=== PATIENT | male | born 1950 | race Caucasian/White ===

== ENCOUNTER → 2017-06-21 | Outpatient (CLI) | payer BC ==
[2017-06-21 13:19] LABS: HCT 46.7 % (39.0-53.0); HGB 15.1 gm/dL (13.0-17.5); MCH 29.6 pg (25.0-35.0); MCHC 32.3 g/dL (31.0-37.0); MCV 91.7 fL (80.0-100.0); Mean Platelet Volume 6.9; Platelet Count 248 k/uL (150-450); RBC 5.09 m/uL (4.30-5.90); RDW 12.5 % (11.5-15.5); WBC 6.2 k/uL (3.8-10.6)
[2017-06-21 13:27] LABS: Appearance,Urine Clear (Clear); Bilirubin,Urine Negative (Negative); Blood,Urine Negative (Negative); Color,Urine Yellow; Glucose,Urine (UA) 2+ (Negative); Ketones,Urine Negative (Negative); Leukocyte Esterase,Urine Negative (Negative); Nitrite,Urine Negative (Negative); Protein,Urine Trace (Negative); Specific Gravity,Urine 1.024 (1.001-1.035); Urobilinogen,Urine <2.0 mg/dL (<2.0)
[2017-06-21 13:40] LABS: Albumin 3.9 g/dL (3.5-5.0); Calcium 9.5 mg/dL (8.4-10.2); Phosphorus 3.1 mg/dL (2.5-4.5); Potassium 4.1 mmol/L (3.5-5.1)
[2017-06-21 14:01] LABS: Creatinine,Urine Random 321.9 mg/dL
[2017-06-21 19:56] LABS: Parathyroid Hormone Intact 59.4 pg/mL (14.0-72.0)
[2017-06-21 19:57] LABS: Vitamin D 25 Hydroxy 23.8 ng/mL (30.0-100.0)
== END | disposition home or self-care (01) ==
LOC: LABWHC1 12:29
PROVIDERS: ATTEND Internal Medicine Nephrology
DX: N18.3 Chronic kidney disease, stage 3 (moderate) (principal)
CPT/HCPCS: 36415; 80048; 80069; 81003; 82306; 82570; 83970; 84156; 85027

== ENCOUNTER 2017-12-02 01:58 | Emergency (ER) | payer MEDICARE, BC ==
[2017-12-02 02:47] LABS: Basophils % (A) 0 %; Eosinophils # (A) 0.1 k/uL (0-0.7); Eosinophils % (A) 1 %; HCT 53.5 % (39.0-53.0); HGB 17.6 gm/dL (13.0-17.5); Lymphocytes # (A) 1.4 k/uL (1.0-4.8); Lymphocytes % (A) 8 %; MCHC 32.9 g/dL (31.0-37.0); MCV 85.1 fL (80.0-100.0); Mean Platelet Volume 6.8; Monocytes # (A) 0.7 k/uL (0-1.0); Monocytes % (A) 4 %; Neutrophils # (A) 15.2 k/uL (1.3-7.7); Neutrophils % (A) 87 %; Platelet Count 412 k/uL (150-450); RBC 6.29 m/uL (4.30-5.90); RDW 13.4 % (11.5-15.5); WBC 17.6 k/uL (3.8-10.6)
[2017-12-02 02:57] LABS: Albumin 4.4 g/dL (3.5-5.0); Calcium 10.1 mg/dL (8.4-10.2); Magnesium 1.3 mg/dL (1.6-2.3); Potassium 4.5 mmol/L (3.5-5.1); Total Bilirubin 0.6 mg/dL (0.2-1.3); Total Protein 7.1 g/dL (6.3-8.2)
--- NOTE | 2017-12-02 03:05 | XR ---
EXAMINATION TYPE: XR chest 2V DATE OF EXAM: 12/02/2017 COMPARISON: NONE HISTORY: Chest pain TECHNIQUE: Frontal and lateral views of the chest are obtained. FINDINGS: There is no heart failure nor confluent pneumonic infiltrate. There are sternal wires. Cos tophrenic angles are clear. There are chest leads. Bony thorax is intact. IMPRESSION: No active cardiopulmonary disease.
[2017-12-02 03:06] LABS: INR 1.1 (<1.2); Partial Thromboplastin Time 24.2 sec (22.0-30.0); Prothrombin Time 10.5 sec (9.0-12.0)
[2017-12-02 03:08] LABS: Creatine Kinase 144 U/L (55-170)
[2017-12-02 03:21] LABS: Troponin I <0.012 ng/mL (0.000-0.034)
[2017-12-02 03:26] LABS: Creatine Kinase MB 3.1 ng/mL (0.0-2.4)
[2017-12-02] MEDS ORDERED: LORazepam 2 MG/ML INJ IV STA (03:27)
[2017-12-02] MEDS ORDERED: SODIUM CHLORIDE 0.9% 1,000 ML IV ONE (03:28)
[2017-12-02] MEDS ORDERED: MAGNESIUM SULFATE-D5W PMX 1 GM in DEXTROSE/WATER 1 100ML.BAG IVPB ONE (03:28)
--- NOTE | 2017-12-02 03:40 | ED ---
General Adult HPI - General Chief complaint: Shortness of Breath Stated complaint: Post op CESARIO Time Seen by Provider: 12/02/17 02:17 Source: patient Mode of arrival: ambulatory Limitations: no limitations - History of Present Illness Initial comments: Leo is a 67-year-old male who presents the emergency department today for evaluation of shortness of breath and palpitations. Patient reports that earlier today he underwent surgery for septal deviation. She was told that postoperatively he did have some hypertension but otherwise the surgery well. He was advised that he cannot lay flat after surgery. Patient reports that this evening he began feeling very anxious. He states that he was able to calm himself but later this evening he then began to feel even more anxious and as though he could not catch his breath. He could feel his heart racing. He asked his son to bring him to the ER for evaluation. Patient has no known cardiac disease, no history of arrhythmia, no history of PE or DVT in the past. Patient states that he was prescribed antibiotics post operatively, he took the first dose this evening. He states that when he began to feel short of breath he read side effects and read that shortness of breath or trouble breathing was a possible side effect. Patient states he feels as though he is having a panic attack however he didn't want take Ativan as he didn't want to mask any symptoms. - Related Data Home Medications Medication Instructions Recorded Confirmed Aspirin 81 mg PO DAILY 12/02/17 12/02/17 Cephalexin [Keflex] 500 mg PO BID 12/02/17 12/02/17 Ergocalciferol (Vitamin D2) 50,000 unit PO DAILY 12/02/17 12/02/17 [Vitamin D2] HYDROcodone/APAP 7.5-325MG [[place] 1 tab PO Q8HR PRN 12/02/17 12/02/17 7.5-325] Losartan/Hydrochlorothiazide 100 mg PO DAILY 12/02/17 12/02/17 [Losartan-Hctz 100-25 mg Tab] Potassium Citrate [Urocit-K] 5 meq PO DAILY 12/02/17 12/02/17 Zolpidem [Ambien] 5 mg PO HS PRN 12/02/17 12/02/17 buPROPion [Wellbutrin] 100 mg PO BID 12/02/17 12/02/17 clonazePAM [KlonoPIN] 0.5 mg PO DAILY PRN 12/02/17 12/02/17 metFORMIN HCL [Glucophage] 500 mg PO BID 12/02/17 12/02/17 Allergies Allergy/AdvReac Type Severity Reaction Status Date / Time No Known Allergies Allergy Verified 12/02/17 02:10 Review of Systems ROS Statement: Those systems with pertinent positive or pertinent negative responses have been documented in the HPI. ROS Other: All systems not noted in ROS Statement are negative. Past Medical History Past Medical History: Diabetes Mellitus, Hypertension Additional Past Medical History / Comment(s): Stage three Kidney disease History of Any Multi-Drug Resistant Organisms: None Reported Past Surgical History: Cholecystectomy, Prostate Surgery, Tonsillectomy Additional Past Surgical History / Comment(s): Open heart 97, Past Psychological History: No Psychological Hx Reported Smoking Status: Never smoker Past Alcohol Use History: Occasional Past Drug Use History: None Reported General Exam Limitations: no limitations General appearance: alert, anxious Head exam: Present: atraumatic, normocephalic Eye exam: Present: normal appearance ENT exam: Present: other (bandage in place on nose) Neck exam: Present: normal inspection Respiratory exam: Present: normal lung sounds bilaterally. Absent: respiratory distress, wheezes Cardiovascular Exam: Present: normal rhythm, tachycardia GI/Abdominal exam: Present: soft. Absent: distended Rectal exam: Present: deferred Extremities exam: Present: normal inspection, full ROM Back exam: Present: normal inspection Neurological exam: Present: alert, oriented X3, normal gait Psychiatric exam: Present: anxious Skin exam: Present: warm, dry Course Vital Signs 12/02/17 12/02/17 12/02/17 02:05 02:33 03:14 Temperature 98.0 F Pulse Rate 120 H 103 H Respiratory 24 20 18 Rate Blood Pressure 173/99 156/98 O2 Sat by Pulse 97 97 Oximetry 12/02/17 05:48 Temperature 97 F L Pulse Rate 95 Respiratory 20 Rate Blood Pressure 149/84 O2 Sat by Pulse 97 Oximetry EKG Findings - EKG Comments: EKG Findings:: EKG at 02:33am - Rate 105, rhythm sinus, normal intervals, AL 1: 30, QRS 92, QTc 438, there are no acute ST elevations or depressions. There is no evidence of acute ischemia or infarction. There is tachycardia. Medical Decision Making - Medical Decision Making The patient was seen and evaluated, history was obtained from patient Patient very anxious, concerned he may be having reaction to antibiotic No rash, GI symptoms, wheezing or hemodynamic instability Labs and imaging ordered EKG sinus tachycardia CXR no acute process Labs reviewed Patient's symptoms improving after return from xray, reports he is feeling better while taking to his son in the room IV ativan ordered for anxiety as he is claustrophobic and needs CT to rule out PE Computed tomography scan reveals no acute pulmonary embolism or pulmonology pathology. That until he Patient was noted have a 4 cm ascending aortic aneurysm. Results were discussed with the patient. Who reports complete resolution of his symptoms. Patient concerned that he maybe had a panic attack secondary to stress of the day. Patient states that he usually would take his benzodiazepines at home for this but didn't want to. At this time patient feels safe to go home. The patient was made aware of his ascending aortic aneurysm and the need to follow up. - Lab Data Result diagrams: 12/02/17 02:35 12/02/17 02:35 Lab Results 12/02/17 12/02/17 12/02/17 Range/Units 02:35 02:35 02:35 WBC 17.6 H (3.8-10.6) k/uL RBC 6.29 H (4.30-5.90) m/uL Hgb 17.6 H (13.0-17.5) gm/dL Hct 53.5 H (39.0-53.0) % MCV 85.1 (80.0-100.0) fL MCH 28.0 (25.0-35.0) pg MCHC 32.9 (31.0-37.0) g/dL RDW 13.4 (11.5-15.5) % Plt Count 412 (150-450) k/uL Neutrophils % 87 % Lymphocytes % 8 % Monocytes % 4 % Eosinophils % 1 % Basophils % 0 % Neutrophils # 15.2 H (1.3-7.7) k/uL Lymphocytes # 1.4 (1.0-4.8) k/uL Monocytes # 0.7 (0-1.0) k/uL Eosinophils # 0.1 (0-0.7) k/uL Basophils # 0.0 (0-0.2) k/uL PT (9.0-12.0) sec INR (<1.2) APTT (22.0-30.0) sec Sodium 136 L (137-145) mmol/L Potassium 4.5 (3.5-5.1) mmol/L Chloride 102 (98-107) mmol/L Carbon Dioxide 17 L (22-30) mmol/L Anion Gap 17 mmol/L BUN 25 H (9-20) mg/dL Creatinine 1.30 H (0.66-1.25) mg/dL Est GFR (CKD-EPI)AfAm 66 (>60 ml/min/1.73 sqM) Est GFR (CKD-EPI)NonAf 57 (>60 ml/min/1.73 sqM) Glucose 196 H (74-99) mg/dL Calcium 10.1 (8.4-10.2) mg/dL Magnesium 1.3 L (1.6-2.3) mg/dL Total Bilirubin 0.6 (0.2-1.3) mg/dL AST 25 (17-59) U/L ALT 41 (21-72) U/L Alkaline Phosphatase 57 (38-126) U/L Total Creatine Kinase 144 (55-170) U/L CK-MB (CK-2) 3.1 H* (0.0-2.4) ng/mL CK-MB (CK-2) Rel Index 2.2 Troponin I <0.012 (0.000-0.034) ng/mL Total Protein 7.1 (6.3-8.2) g/dL Albumin 4.4 (3.5-5.0) g/dL 12/02/17 Range/Units 02:35 WBC (3.8-10.6) k/uL RBC (4.30-5.90) m/uL Hgb (13.0-17.5) gm/dL Hct (39.0-53.0) % MCV (80.0-100.0) fL MCH (25.0-35.0) pg MCHC (31.0-37.0) g/dL RDW (11.5-15.5) % Plt Count (150-450) k/uL Neutrophils % % Lymphocytes % % Monocytes % % Eosinophils % % Basophils % % Neutrophils # (1.3-7.7) k/uL Lymphocytes # (1.0-4.8) k/uL Monocytes # (0-1.0) k/uL Eosinophils # (0-0.7) k/uL Basophils # (0-0.2) k/uL PT 10.5 (9.0-12.0) sec INR 1.1 (<1.2) APTT 24.2 (22.0-30.0) sec Sodium (137-145) mmol/L Potassium (3.5-5.1) mmol/L Chloride (98-107) mmol/L Carbon Dioxide (22-30) mmol/L Anion Gap mmol/L BUN (9-20) mg/dL Creatinine (0.66-1.25) mg/dL Est GFR (CKD-EPI)AfAm (>60 ml/min/1.73 sqM) Est GFR (CKD-EPI)NonAf (>60 ml/min/1.73 sqM) Glucose (74-99) mg/dL Calcium (8.4-10.2) mg/dL Magnesium (1.6-2.3) mg/dL Total Bilirubin (0.2-1.3) mg/dL AST (17-59) U/L ALT (21-72) U/L Alkaline Phosphatase (38-126) U/L Total Creatine Kinase (55-170) U/L CK-MB (CK-2) (0.0-2.4) ng/mL CK-MB (CK-2) Rel Index Troponin I (0.000-0.034) ng/mL Total Protein (6.3-8.2) g/dL Albumin (3.5-5.0) g/dL Disposition Clinical Impression: Shortness of breath, Aortic aneurysm Disposition: HOME SELF-CARE Condition: Good Instructions: Thoracic Aortic Aneurysm (ED) Is patient prescribed a controlled substance at d/c from ED?: No Referrals: Dwayne Chaparro MD [Primary Care Provider] - 1-2 days Time of Disposition: 05:12
--- NOTE | 2017-12-02 04:46 | CT ---
EXAMINATION TYPE: CT chest angio for PE DATE OF EXAM: 12/02/2017 COMPARISON: None HISTORY: SOB, Post Op Deviated Septum surgery yesterday CT DLP: 459.30 mGycm Automated exposure control for dose reduction was used. CONTRAST: CT Chest for pulmonary embolism performed with with IV Contrast, patient injected with 65 mL of Isovu e 370. FINDINGS: There are 3-D post processed images. The lungs are clear of consolidation. There is no pleural effusion. Heart size is normal. There is no pericardial effusion. There is normal contrast opacification of the pulmonary arteries. I see no filling defect. Thoracic a arias shows mild atheromatous change. There is mild aneurysm of ascending aorta that measures 4 cm. Th ere is no evidence of dissection. There is no mediastinal adenopathy. There are no hilar masses. Ther e is spurring in the thoracic spine. IMPRESSION: No evidence of pulmonary embolism. Minimal aneurysm of the ascending aorta.
[2017-12-02 05:49] VITALS: BP 149/84; PULSE 95; RESP 20; TEMP 97
== END 2017-12-02 05:49 | disposition home or self-care (01) ==
LOC: EC 01:58
DX: I71.2 Thoracic aortic aneurysm, without rupture (principal); F41.9 Anxiety disorder, unspecified; E11.9 Type 2 diabetes mellitus without complications; I10 Essential (primary) hypertension; Z79.82 Long term (current) use of aspirin; Z79.84 Long term (current) use of oral hypoglycemic drugs; Z79.899 Other long term (current) drug therapy
CPT/HCPCS: 96365 ×2; 96366 ×2; 96375 ×2; 99285 ×3; 36415; 93005; 80053; 82550; 82553; 83735; 84484; 85025; 85610; 85730; 71046; 71275; J2060; J3475; Q9967

== ENCOUNTER 2017-12-02 14:16 | Emergency (ER) | payer MEDICARE, BC ==
[2017-12-02 14:25] VITALS: TEMP 97.4
[2017-12-02] MEDS ORDERED: LORazepam 1 MG TAB PO STA (14:47)
--- NOTE | 2017-12-02 15:07 | ED ---
General Adult HPI - General Chief complaint: Recheck/Abnormal Lab/Rx Stated complaint: SOB Time Seen by Provider: 12/02/17 14:36 Source: patient, RN notes reviewed, old records reviewed Mode of arrival: ambulatory Limitations: no limitations - History of Present Illness Initial comments: This is a 67-year-old male. This patient does say for evaluation regarding significant anxiety anxiety the reaction. Patient states he feels very stressed secondary to surgery, he does have nasal packing, patient states it makes her very nervous that he can't breathe and he doesn't light breathing out of his mouth. Patient so nurse that he cannot sleep. Patient does have Klonopin at home and he does usually take for sleep today but is afraid to take that secondary to anesthetic for surgery. Patient was seen in ER last night for same - Related Data Home Medications Medication Instructions Recorded Confirmed Aspirin 81 mg PO DAILY 12/02/17 12/02/17 Cephalexin [Keflex] 500 mg PO BID 12/02/17 12/02/17 Ergocalciferol (Vitamin D2) 50,000 unit PO DAILY 12/02/17 12/02/17 [Vitamin D2] HYDROcodone/APAP 7.5-325MG [[place] 1 tab PO Q8HR PRN 12/02/17 12/02/17 7.5-325] Losartan/Hydrochlorothiazide 100 mg PO DAILY 12/02/17 12/02/17 [Losartan-Hctz 100-25 mg Tab] Potassium Citrate [Urocit-K] 5 meq PO DAILY 12/02/17 12/02/17 Zolpidem [Ambien] 5 mg PO HS PRN 12/02/17 12/02/17 buPROPion [Wellbutrin] 100 mg PO BID 12/02/17 12/02/17 clonazePAM [KlonoPIN] 0.5 mg PO DAILY PRN 12/02/17 12/02/17 metFORMIN HCL [Glucophage] 500 mg PO BID 12/02/17 12/02/17 Allergies Allergy/AdvReac Type Severity Reaction Status Date / Time chocolate flavor AdvReac congested Verified 12/02/17 14:26 corn AdvReac congested Verified 12/02/17 14:26 tomato AdvReac congested Verified 12/02/17 14:26 Review of Systems ROS Statement: Those systems with pertinent positive or pertinent negative responses have been documented in the HPI. ROS Other: All systems not noted in ROS Statement are negative. Past Medical History Past Medical History: Diabetes Mellitus, Hypertension Additional Past Medical History / Comment(s): Stage three Kidney disease History of Any Multi-Drug Resistant Organisms: None Reported Past Surgical History: Cholecystectomy, Coronary Bypass/CABG, Prostate Surgery, Tonsillectomy Additional Past Surgical History / Comment(s): deviated septum repair Past Psychological History: No Psychological Hx Reported Smoking Status: Never smoker Past Alcohol Use History: Occasional Past Drug Use History: None Reported General Exam Limitations: no limitations General appearance: alert, in no apparent distress Head exam: Present: atraumatic, normocephalic, normal inspection Eye exam: Present: normal appearance, PERRL, EOMI. Absent: scleral icterus, conjunctival injection, periorbital swelling ENT exam: Present: normal exam, mucous membranes moist Neck exam: Present: normal inspection. Absent: tenderness, meningismus, lymphadenopathy Respiratory exam: Present: normal lung sounds bilaterally. Absent: respiratory distress, wheezes, rales, rhonchi, stridor Cardiovascular Exam: Present: regular rate, normal rhythm, normal heart sounds. Absent: systolic murmur, diastolic murmur, rubs, gallop, clicks GI/Abdominal exam: Present: soft, normal bowel sounds. Absent: distended, tenderness, guarding, rebound, rigid Extremities exam: Present: normal inspection, full ROM, normal capillary refill. Absent: tenderness, pedal edema, joint swelling, calf tenderness Back exam: Present: normal inspection Neurological exam: Present: alert, oriented X3, CN II-XII intact Psychiatric exam: Present: normal affect, normal mood Skin exam: Present: warm, dry, intact, normal color. Absent: rash Course Vital Signs 12/02/17 14:21 Temperature 97.4 F L Pulse Rate 90 Respiratory 18 Rate Blood Pressure 148/102 O2 Sat by Pulse 98 Oximetry - Reevaluation(s) Reevaluation #1: 12/02/17 15:06 ER visit from prior the night is reviewed Reevaluation #2: 12/02/17 15:06 Spoke with family at length regarding anxiety in medications. Medical Decision Making - Medical Decision Making 67 male the ER for evaluation. Patient presents today for evaluation regards to anxiety attack secondary to surgery. Patient is CTA chest negative earlier in the day. Patient can be discharged home Disposition Clinical Impression: Shortness of breath, Anxiety Disposition: HOME SELF-CARE Condition: Good Instructions: Anxiety (ED) Is patient prescribed a controlled substance at d/c from ED?: No Referrals: Dwayne Chaparro MD [Primary Care Provider] - 1-2 days
[2017-12-02 16:02] VITALS: BP 126/89; PULSE 75; RESP 16
== END 2017-12-02 16:02 | disposition home or self-care (01) ==
LOC: EC 14:16
DX: R06.02 Shortness of breath (principal); F41.9 Anxiety disorder, unspecified; R45.0 Nervousness; E11.9 Type 2 diabetes mellitus without complications; I10 Essential (primary) hypertension; Z91.018 Allergy to other foods; Z79.82 Long term (current) use of aspirin; Z79.84 Long term (current) use of oral hypoglycemic drugs; Z79.899 Other long term (current) drug therapy; Z98.890 Other specified postprocedural states; Z95.1 Presence of aortocoronary bypass graft
CPT/HCPCS: 99285

== ENCOUNTER → 2018-12-12 | Outpatient (CLI) | payer BC, MEDICARE ==
[2018-12-12 15:16] LABS: Appearance,Urine Clear (Clear); Basophils # (A) 0.1 k/uL (0-0.2); Basophils % (A) 1 %; Bilirubin,Urine Negative (Negative); Blood,Urine Negative (Negative); Color,Urine Yellow; Eosinophils # (A) 0.2 k/uL (0-0.7); Eosinophils % (A) 2 %; Glucose,Urine (UA) 3+ (Negative); HCT 48.6 % (39.0-53.0); HGB 16.4 gm/dL (13.0-17.5); Ketones,Urine Negative (Negative); Leukocyte Esterase,Urine Negative (Negative); Lymphocytes # (A) 1.6 k/uL (1.0-4.8); Lymphocytes % (A) 20 %; MCH 30.4 pg (25.0-35.0); MCHC 33.7 g/dL (31.0-37.0); MCV 90.1 fL (80.0-100.0); Mean Platelet Volume 6.6; Monocytes # (A) 0.6 k/uL (0-1.0); Monocytes % (A) 8 %; Neutrophils # (A) 5.5 k/uL (1.3-7.7); Neutrophils % (A) 68 %; Nitrite,Urine Negative (Negative); Platelet Count 271 k/uL (150-450); Protein,Urine Trace (Negative); RDW 13.3 % (11.5-15.5); Specific Gravity,Urine 1.021 (1.001-1.035); Urobilinogen,Urine <2.0 mg/dL (<2.0); WBC 8.1 k/uL (3.8-10.6)
[2018-12-12 19:04] LABS: African American GFR (CKD) 47.6 (60.0-200.0); Albumin 4.1 g/dL (3.80-4.90); Albumin/Globulin Ratio 2.16 (1.60-3.17); Anion Gap 9.6 mmol/L (4.00-12.00); BUN/Creat Ratio 15.88 Ratio (12.00-20.00); Calcium 9.1 mg/dL (8.7-10.3); Carbon Dioxide 25.4 mmol/L (21.6-31.8); Globulin 1.9 g/dL (1.6-3.3); Non-African American GFR(CKD) 41.1 (60.0-200.0); Phosphorus 3.5 mg/dL (2.4-5.1); Potassium 4.4 mmol/L (3.5-5.5); Total Bilirubin 0.3 mg/dL (0.3-1.2); Uric Acid 7.3 mg/dL (3.7-8.7)
[2018-12-13 00:38] LABS: Total Protein,Urine Random 18.8 mg/dL (0.0-13.5)
[2018-12-13 00:41] LABS: Creatinine,Urine Random 115.7 mg/dL
== END | disposition home or self-care (01) ==
LOC: LABWHC1 12-11 12:20
PROVIDERS: ATTEND Internal Medicine Nephrology
DX: N18.3 Chronic kidney disease, stage 3 (moderate) (principal)
CPT/HCPCS: 36415; 80053; 81003; 82570; 83970; 84100; 84156; 84550; 85025

== ENCOUNTER → 2019-06-15 | Outpatient (CLI) | payer MEDICARE ==
[2019-06-15 13:44] LABS: Basophils # (A) 0.1 k/uL (0-0.2); Basophils % (A) 1 %; Eosinophils # (A) 0.2 k/uL (0-0.7); Eosinophils % (A) 3 %; HCT 51.8 % (39.0-53.0); HGB 16.8 gm/dL (13.0-17.5); Lymphocytes # (A) 1.6 k/uL (1.0-4.8); Lymphocytes % (A) 24 %; MCHC 32.5 g/dL (31.0-37.0); MCV 89.3 fL (80.0-100.0); Mean Platelet Volume 7.2; Monocytes # (A) 0.3 k/uL (0-1.0); Monocytes % (A) 4 %; Neutrophils # (A) 4.6 k/uL (1.3-7.7); Neutrophils % (A) 66 %; Platelet Count 287 k/uL (150-450); RDW 12.4 % (11.5-15.5)
[2019-06-15 14:34] LABS: Appearance,Urine Clear (Clear); Bilirubin,Urine Negative (Negative); Blood,Urine Negative (Negative); Color,Urine Yellow; Glucose,Urine (UA) Trace (Negative); Ketones,Urine Negative (Negative); Leukocyte Esterase,Urine Negative (Negative); Nitrite,Urine Negative (Negative); PH, Urine 5.5 (5.0-8.0); Protein,Urine Trace (Negative); Specific Gravity,Urine 1.022 (1.001-1.035); Urobilinogen,Urine <2.0 mg/dL (<2.0)
[2019-06-15 18:30] LABS: African American GFR (CKD) 41.7 (60.0-200.0); Albumin 4.5 g/dL (3.80-4.90); Albumin/Globulin Ratio 2.37 (1.60-3.17); Anion Gap 8.9 mmol/L (4.00-12.00); BUN/Creat Ratio 11.05 Ratio (12.00-20.00); Calcium 9.6 mg/dL (8.7-10.3); Carbon Dioxide 27.1 mmol/L (21.6-31.8); Globulin 1.9 g/dL (1.6-3.3); Non-African American GFR(CKD) 35.9 (60.0-200.0); Phosphorus 3.5 mg/dL (2.4-5.1); Potassium 4.5 mmol/L (3.5-5.5); Total Bilirubin 0.6 mg/dL (0.3-1.2); Total Protein 6.4 g/dL (6.2-8.2)
[2019-06-16 01:16] LABS: Total Protein,Urine Random 19.6 mg/dL (0.0-13.5)
[2019-06-16 01:17] LABS: Creatinine,Urine Random 213.3 mg/dL
== END | disposition home or self-care (01) ==
LOC: LABWHC1 13:08
PROVIDERS: ATTEND Internal Medicine Nephrology
DX: N18.3 Chronic kidney disease, stage 3 (moderate) (principal)
CPT/HCPCS: 36415; 80053; 81003; 82570; 83970; 84100; 84156; 85025

== ENCOUNTER → 2019-07-02 | Outpatient (CLI) | payer MEDICARE ==
[2019-07-02 15:43] LABS: HCT 46.5 % (39.0-53.0); MCH 28.2 pg (25.0-35.0); MCHC 32.4 g/dL (31.0-37.0); MCV 87.2 fL (80.0-100.0); Mean Platelet Volume 7.6; Platelet Count 261 k/uL (150-450); RBC 5.33 m/uL (4.30-5.90); RDW 12.8 % (11.5-15.5); WBC 8.4 k/uL (3.8-10.6)
[2019-07-02 17:54] LABS: Erythrocyte Sedimentation Rate 7 mm/hr (0-15)
[2019-07-02 23:40] LABS: African American GFR (CKD) 41.7 (60.0-200.0); Calcium 9.7 mg/dL (8.7-10.3); Magnesium 1.6 mg/dL (1.5-2.4); Non-African American GFR(CKD) 35.9 (60.0-200.0); Potassium 4.5 mmol/L (3.5-5.5)
[2019-07-03 00:01] LABS: Folate, Serum 15.5 ng/mL
[2019-07-03 00:43] LABS: Protein, Total 6.3 g/dL (6.2-8.2)
[2019-07-03 13:59] LABS: Albumin 3.91 g/dL (3.80-4.90); Gamma Globulin 0.73 g/dL (0.70-1.50)
== END | disposition home or self-care (01) ==
LOC: LABWHC1 14:25
PROVIDERS: ATTEND Physical Medicine & Rehabilitation
DX: G60.3 Idiopathic progressive neuropathy (principal); E11.9 Type 2 diabetes mellitus without complications; M13.80 Other specified arthritis, unspecified site; R25.2 Cramp and spasm; Z79.899 Other long term (current) drug therapy
CPT/HCPCS: 36415; 80051; 82310; 82550; 82565; 82607; 82746; 82977; 83615; 83735; 84075; 84165; 84207; 84443; 84450; 84460; 84480; 84481; 84520; 84550; 85027; 85652; 86038; 86431

== ENCOUNTER → 2020-04-02 | Outpatient (CLI) | payer MEDICARE ==
[2020-04-02 12:10] LABS: Appearance,Urine Clear (Clear); Bilirubin,Urine Negative (Negative); Blood,Urine Negative (Negative); Color,Urine Yellow; Glucose,Urine (UA) 2+ (Negative); Ketones,Urine Negative (Negative); Leukocyte Esterase,Urine Negative (Negative); Nitrite,Urine Negative (Negative); PH, Urine 5.5 (5.0-8.0); Protein,Urine Negative (Negative); Specific Gravity,Urine 1.019 (1.001-1.035); Urobilinogen,Urine <2.0 mg/dL (<2.0)
[2020-04-02 12:16] LABS: Basophils % (A) 0 %; Eosinophils # (A) 0.2 k/uL (0-0.7); Eosinophils % (A) 2 %; HCT 47.8 % (39.0-53.0); HGB 15.8 gm/dL (13.0-17.5); Lymphocytes # (A) 1.8 k/uL (1.0-4.8); Lymphocytes % (A) 23 %; MCH 30.5 pg (25.0-35.0); MCHC 33.1 g/dL (31.0-37.0); Mean Platelet Volume 6.8; Monocytes # (A) 0.5 k/uL (0-1.0); Monocytes % (A) 6 %; Neutrophils # (A) 5.3 k/uL (1.3-7.7); Neutrophils % (A) 67 %; Platelet Count 248 k/uL (150-450); RBC 5.19 m/uL (4.30-5.90); RDW 12.8 % (11.5-15.5)
[2020-04-02 14:48] LABS: Creatinine,Urine Random 170.7 mg/dL; Protein/Creatinine Ratio,Urine 0.064
[2020-04-02 18:34] LABS: African American GFR (CKD) 44.2 (60.0-200.0); Albumin 4.4 g/dL (3.80-4.90); Albumin/Globulin Ratio 2.32 (1.60-3.17); Anion Gap 6.7 mmol/L (4.00-12.00); BUN/Creat Ratio 14.44 Ratio (12.00-20.00); Calcium 9.5 mg/dL (8.7-10.3); Carbon Dioxide 28.3 mmol/L (21.6-31.8); Globulin 1.9 g/dL (1.6-3.3); Non-African American GFR(CKD) 38.1 (60.0-200.0); Phosphorus 3.4 mg/dL (2.4-5.1); Potassium 4.2 mmol/L (3.5-5.5); Total Bilirubin 0.4 mg/dL (0.3-1.2); Total Protein 6.3 g/dL (6.2-8.2)
== END | disposition home or self-care (01) ==
LOC: LABWHC1 11:11
PROVIDERS: ATTEND Internal Medicine Nephrology
DX: N18.30 Chronic kidney disease, stage 3 unspecified (principal)
CPT/HCPCS: 36415; 80053; 81003; 82570; 83970; 84100; 84156; 85025

== ENCOUNTER → 2020-06-16 | Outpatient (CLI) | payer MEDICARE | END | disposition home or self-care (01) | LOC: LABWHC1 15:20 | PROVIDERS: ATTEND Thoracic Surgery (Cardiothoracic Vascular Surgery) | DX: I10 Essential (primary) hypertension (principal) | CPT/HCPCS: 36415; 82565; 84520 ==

== ENCOUNTER 2020-11-27 19:27 | Emergency (ER) | payer MEDICARE ==
[2020-11-27 19:53] VITALS: BP 120/78; PULSE 86; RESP 17; TEMP 98.8
[2020-11-27 20:50] LABS: Albumin 3.8 g/dL (3.5-5.0); Calcium 9.4 mg/dL (8.4-10.2); Potassium 4.1 mmol/L (3.5-5.1); Total Bilirubin 0.2 mg/dL (0.2-1.3); Total Protein 6.3 g/dL (6.3-8.2)
[2020-11-27 20:52] LABS: HCT 49.3 % (39.0-53.0); HGB 16.9 gm/dL (13.0-17.5); MCH 31.2 pg (25.0-35.0); MCHC 34.2 g/dL (31.0-37.0); MCV 91.3 fL (80.0-100.0); Mean Platelet Volume 7.2; Platelet Count 224 k/uL (150-450); RDW 13.1 % (11.5-15.5); WBC 5.8 k/uL (3.8-10.6)
[2020-11-27 21:08] LABS: Eosinophils # (M) 0.12 k/uL (0-0.7); Monocytes # (M) 0.46 k/uL (0-1.0); Neutrophils # (M) 4.12 k/uL (1.3-7.7); Neutrophils % (M) 71 %; Nucleated Red Blood Cells 0 /100 WBC (0-0); Polychromasia Present; Total Cells Counted 100
[2020-11-27] MEDS ORDERED: cefTRIAXone IN SWFI 1,000 MG/10 ML SYRINGE IVP STA (21:42)
--- NOTE | 2020-11-27 21:47 | ED ---
Wound/Laceration HPI - General Chief Complaint: Wound/Laceration Stated Complaint: Foot pain Time Seen by Provider: 11/27/20 20:02 Source: patient Mode of arrival: ambulatory Limitations: no limitations - History of Present Illness Initial Comments: Patient is a 70-year-old male with history of neuropathy, diabetes, presenting to the emergency Department with complaints of a possible worsening wound on the bottom of his right foot. Patient states he goes to a [facility] design engineer to get his nails trimmed secondary to his diabetes. Last week he went and they noticed a blister on the bottom of his right great toe so they cut off all the tissue. Patient has been doing wound care at home but noticed some redness today. He went back to the [employer] design engineer and they recommended coming in for evaluation. He noticed a few little red streaks coming up his right top of his foot. He denies any fevers or chills, no nausea or vomiting. He states in the evening drinking as normal. He denies any increase in pain. He has no further complaints. - Related Data Home Medications Medication Instructions Recorded Confirmed Aspirin 81 mg PO DAILY 12/02/17 12/02/17 Ergocalciferol (Vitamin D2) 50,000 unit PO DAILY 12/02/17 12/02/17 [Vitamin D2] HYDROcodone/APAP 7.5-325MG [[place] 1 tab PO Q8HR PRN 12/02/17 12/02/17 7.5-325] Losartan/Hydrochlorothiazide 100 mg PO DAILY 12/02/17 12/02/17 [Losartan-Hctz 100-25 mg Tab] Potassium Citrate [Urocit-K] 5 meq PO DAILY 12/02/17 12/02/17 Zolpidem [Ambien] 5 mg PO HS PRN 12/02/17 12/02/17 buPROPion [Wellbutrin] 100 mg PO BID 12/02/17 12/02/17 cephALEXin [Keflex] 500 mg PO BID 12/02/17 12/02/17 clonazePAM [KlonoPIN] 0.5 mg PO DAILY PRN 12/02/17 12/02/17 metFORMIN HCL [Glucophage] 500 mg PO BID 12/02/17 12/02/17 Previous Rx's Medication Instructions Recorded Cephalexin [Keflex] 500 mg PO Q6HR 7 Days #28 cap 11/27/20 Sulfamethox-Tmp 800-160Mg [Bactrim 1 each PO Q12HR 7 Days #14 tab 11/27/20 Ds] Allergies Allergy/AdvReac Type Severity Reaction Status Date / Time chocolate flavor AdvReac congested Verified 11/27/20 19:53 corn AdvReac congested Verified 11/27/20 19:53 tomato AdvReac congested Verified 11/27/20 19:53 Review of Systems ROS Statement: Those systems with pertinent positive or pertinent negative responses have been documented in the HPI. ROS Other: All systems not noted in ROS Statement are negative. Past Medical History Past Medical History: Diabetes Mellitus, Hypertension, Renal Disease Additional Past Medical History / Comment(s): Stage three Kidney disease History of Any Multi-Drug Resistant Organisms: None Reported Past Surgical History: Cholecystectomy, Coronary Bypass/CABG, Prostate Surgery, Tonsillectomy Additional Past Surgical History / Comment(s): deviated septum repair Past Anesthesia/Blood Transfusion Reactions: No Reported Reaction Past Psychological History: Anxiety, Depression Smoking Status: Never smoker Past Alcohol Use History: Occasional Past Drug Use History: None Reported General Exam - General Exam Comments Initial Comments: GENERAL: Patient is well-developed and well-nourished. Patient is nontoxic and in no acute distress. HEAD: Atraumatic, normocephalic. EYES: Pupils equal round and reactive to light, extraocular movements intact, sclera anicteric, conjunctiva are normal. Eyelids were unremarkable. ENT: Nares patent, oropharynx clear without exudates. Moist mucous membranes. NECK: Normal range of motion, supple without lymphadenopathy or JVD. LUNGS: Unlabored respirations. Breath sounds clear to auscultation bilaterally and equal. No wheezes rales or rhonchi. HEART: Regular rate and rhythm without murmurs, rubs or gallops. ABDOMEN: Soft, nontender, normoactive bowel sounds. MUSCULOSKELETAL: Normal extremities with adequate strength and normal range of motion, no pitting or edema. No clubbing or cyanosis. NEUROLOGICAL: Patient is alert and oriented x 3. SKIN: Warm, Dry, normal turgor. Patient has a 2 cm in diameter open wound on the bottom of the right great toe, there is some normal tissue present, this is superficial, no active drainage, there is some erythema surrounding the wound and also some erythema spreading up the side of the foot and dorsally. This stops about to the ankle. There is no increase in pain, no swelling. Limitations: no limitations Course Vital Signs 11/27/20 19:47 Temperature 98.8 F Pulse Rate 86 Respiratory 17 Rate Blood Pressure 120/78 O2 Sat by Pulse 96 Oximetry Medical Decision Making - Medical Decision Making Patient is a 70-year-old male with history of diabetes, presenting with a wound on the bottom of his right foot, concerns for cellulitis as he does have streaks developing on the dorsal aspect of his right foot. No fevers, his vitals are stable. Labs show no acute abnormality, normal white count. Patient will be given 1 g of Rocephin here in the ER and started on Bactrim and Keflex. He will continue with his acute wound care at home. He can follow-up with his family doctor and/or fpga design engineer. He is agreeable to this plan of care is stable for discharge. Case discussed with Dr. Hanley. - Lab Data Result diagrams: 11/27/20 20:19 11/27/20 20:19 Lab Results 11/27/20 11/27/20 Range/Units 20:19 20:19 WBC 5.8 (3.8-10.6) k/uL RBC 5.40 (4.30-5.90) m/uL Hgb 16.9 (13.0-17.5) gm/dL Hct 49.3 (39.0-53.0) % MCV 91.3 (80.0-100.0) fL MCH 31.2 (25.0-35.0) pg MCHC 34.2 (31.0-37.0) g/dL RDW 13.1 (11.5-15.5) % Plt Count 224 (150-450) k/uL MPV 7.2 Neutrophils % (Manual) 71 % Lymphocytes % (Manual) 19 % Monocytes % (Manual) 8 % Eosinophils % (Manual) 2 % Neutrophils # (Manual) 4.12 (1.3-7.7) k/uL Lymphocytes # (Manual) 1.10 (1.0-4.8) k/uL Monocytes # (Manual) 0.46 (0-1.0) k/uL Eosinophils # (Manual) 0.12 (0-0.7) k/uL Nucleated RBCs 0 (0-0) /100 WBC Polychromasia Present Sodium 140 (137-145) mmol/L Potassium 4.1 (3.5-5.1) mmol/L Chloride 106 (98-107) mmol/L Carbon Dioxide 24 (22-30) mmol/L Anion Gap 10 mmol/L BUN 20 (9-20) mg/dL Creatinine 1.75 H (0.66-1.25) mg/dL Est GFR (CKD-EPI)AfAm 45 (>60 ml/min/1.73 sqM) Est GFR (CKD-EPI)NonAf 39 (>60 ml/min/1.73 sqM) Glucose 121 H (74-99) mg/dL Calcium 9.4 (8.4-10.2) mg/dL Total Bilirubin 0.2 (0.2-1.3) mg/dL AST 39 (17-59) U/L ALT 42 (4-49) U/L Alkaline Phosphatase 64 (38-126) U/L C-Reactive Protein 2.0 H (<1.0) mg/dL Total Protein 6.3 (6.3-8.2) g/dL Albumin 3.8 (3.5-5.0) g/dL Disposition Clinical Impression: Cellulitis of right foot, Open wound of right great toe Disposition: HOME SELF-CARE Condition: Stable Instructions (If sedation given, give patient instructions): Cellulitis (ED) Additional Instructions: Please return to the Emergency Department if symptoms worsen or any other concerns. Please take both antibiotics as directed. Apply topical antibiotic to the wound itself. These follow-up with your family doctor and/or fpga design engineer. Prescriptions: Sulfamethox-Tmp 800-160Mg [Bactrim Ds] 1 each PO Q12HR 7 Days #14 tab Cephalexin [Keflex] 500 mg PO Q6HR 7 Days #28 cap Is patient prescribed a controlled substance at d/c from ED?: No Referrals: Dwayne Chaparro MD [Primary Care Provider] - 1-2 days Time of Disposition: 21:46
[2020-11-27 22:16] LABS: Erythrocyte Sedimentation Rate 13 mm/hr (0-15)
== END 2020-11-27 22:14 | disposition home or self-care (01) ==
LOC: EC 19:27
DX: S91.101A Unspecified open wound of right great toe without damage to nail, initial encounter (principal); L03.115 Cellulitis of right lower limb; I10 Essential (primary) hypertension; E11.9 Type 2 diabetes mellitus without complications; Z91.02 Food additives allergy status; Z91.018 Allergy to other foods; Z79.84 Long term (current) use of oral hypoglycemic drugs; Z79.899 Other long term (current) drug therapy; X58.XXXA Exposure to other specified factors, initial encounter
CPT/HCPCS: 36415; 80053; 85652; 85025; 86140; 99283; 96374; J0696

== ENCOUNTER 2021-02-22 20:09 | Observation (INO) | payer MEDICARE ==
[2021-02-22] MEDS ORDERED: SODIUM CHLORIDE 0.9% 500 ML 500 ML IV STA (21:20)
[2021-02-22] MEDS ORDERED: ACETAMINOPHEN TAB 500 MG TAB PO STA (21:20)
[2021-02-22] MEDS ORDERED: ONDANSETRON 4 MG/2 ML VIAL IVP STA (21:21)
[2021-02-22 22:21] LABS: Basophils # (A) 0.1 k/uL (0-0.2); Basophils % (A) 1 %; Eosinophils % (A) 0 %; HCT 49.1 % (39.0-53.0); HGB 16.4 gm/dL (13.0-17.5); Lymphocytes # (A) 0.7 k/uL (1.0-4.8); Lymphocytes % (A) 7 %; MCH 30.5 pg (25.0-35.0); MCHC 33.5 g/dL (31.0-37.0); Mean Platelet Volume 7.3; Monocytes # (A) 0.5 k/uL (0-1.0); Monocytes % (A) 5 %; Neutrophils # (A) 7.8 k/uL (1.3-7.7); Neutrophils % (A) 85 %; Platelet Count 209 k/uL (150-450); RDW 13.4 % (11.5-15.5); WBC 9.3 k/uL (3.8-10.6)
[2021-02-22 22:25] LABS: Appearance,Urine Clear (Clear); Bilirubin,Urine Negative (Negative); Blood,Urine Negative (Negative); Color,Urine Light Yellow; Glucose,Urine (UA) Negative (Negative); Ketones,Urine Negative (Negative); Leukocyte Esterase,Urine Negative (Negative); Nitrite,Urine Negative (Negative); Protein,Urine Negative (Negative); Specific Gravity,Urine 1.011 (1.001-1.035); Urobilinogen,Urine <2.0 mg/dL (<2.0)
[2021-02-22 22:31] LABS: Partial Thromboplastin Time 23.2 sec (22.0-30.0); Prothrombin Time 10.8 sec (9.0-12.0)
[2021-02-22 22:50] LABS: Calcium 9.2 mg/dL (8.4-10.2); Total Bilirubin 1.2 mg/dL (0.2-1.3)
[2021-02-22 22:52] LABS: Potassium 4.9 mmol/L (3.5-5.1)
--- NOTE | 2021-02-22 23:19 | XR ---
EXAMINATION TYPE: XR chest 2V DATE OF EXAM: 02/22/2021 COMPARISON: 12/02/2017 HISTORY: Cough TECHNIQUE: FINDINGS: Heart and mediastinum are normal. Lungs are clear of infiltrate. There is slight blunting l eft costophrenic angle. There are sternal wires. Bony thorax is intact. IMPRESSION: Mild pleural reaction left lateral lung base. Normal heart. No change.
--- NOTE | 2021-02-22 23:23 | CT ---
EXAMINATION TYPE: CT brain suad boudreaux con DATE OF EXAM: 02/22/2021 COMPARISON: None HISTORY: syncope CT DLP: 1607.2 mGycm Automated exposure control for dose reduction was used. Images of the brain and cervical spine obtained with no contrast. There is mild cerebral atrophy. There is no mass effect nor midline shift. There is no sign of intrac ranial hemorrhage. Calvarium is intact. Skull base is intact. There is normal aeration of the mastoid sinuses. Cervical vertebra have normal alignment. There is anterior spurring at C5-6 and C6-7. Facet joints ar e intact. There is no compression fracture. I see no bony destructive process. IMPRESSION: Spondylotic changes. No fracture. Mild cerebral atrophy. No acute intracranial abnormality.
[2021-02-22] MEDS ORDERED: diphenhydrAMINE 50 MG/ML 1 ML VIAL IVP STA (23:26)
[2021-02-22] MEDS ORDERED: METOCLOPRAMIDE 5 MG/ML 2 ML VIAL IVP STA (23:26)
--- NOTE | 2021-02-22 23:49 | CT ---
EXAMINATION TYPE: CT chest angio for PE DATE OF EXAM: 02/22/2021 COMPARISON: 12/02/2017 HISTORY: SYNCOPE, SOB CT DLP: 541.3 mGycm Automated exposure control for dose reduction was used. CONTRAST: Performed with IV Contrast, patient injected with 80 mL of Isovue 370. There are 3-D post processed images. The lungs are clear of consolidation. There is no evidence of a pulmonary mass. There is no pleural e ffusion. Heart size is normal. There is no pericardial effusion. There is no mediastinal adenopathy. There are no hilar masses. There is 4.1 cm aneurysm of the ascend ing aorta. There is no dissection. There is some spurring in the thoracic spine. Sternum is intact. There is normal contrast opacification of the pulmonary arteries. There are no filling defects. IMPRESSION: No evidence of pulmonary embolism. No adverse change compared to old exam. Stable mild aneurysm ascen ding aorta.
--- NOTE | 2021-02-22 23:59 | ED ---
General Adult HPI - General Chief complaint: Syncope Stated complaint: Syncope Source: patient, EMS Mode of arrival: EMS Limitations: no limitations - History of Present Illness Initial comments: 70-year-old male presents emergency department after he had a syncopal episode at home. Patient was returned from [facility] 4 days ago. States that he was feeling well up until today. Patient had gone into the bathroom when his family heard a thump. He ended up having a syncopal episode and hit his head on the door. They had to wait until the patient regained consciousness in order to get in because patient had to sit up and get away from the door. EMS was called. Patient states that he felt confused by the questions that the esthetician/owner was asking him. He arrives and complains of a headache. It is unsure if the headache was present before or after the head injury as he states that he does get frequent headaches. Patient denies any fevers or chills. No recent i llnesses. Is currently under treatment for a diabetic wound on his right foot through his podiatry office. Patient denies having any chest pain or shortness of breath previous the incident. He does have a history of bypass surgery and sees a lithographic etcher out of [facility]. States he just saw him last week and had EKG and carotids. Patient denies any abdominal pain. No changes in his bowel or bladder habits. 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 - Related Data Home Medications Medication Instructions Recorded Confirmed HYDROcodone/APAP 7.5-325MG [[place] 1 tab PO Q6H PRN 12/02/17 11/27/20 7.5-325] Zolpidem [Ambien] 5 mg PO HS PRN 12/02/17 11/27/20 Albuterol Sulfate [Proair Hfa] 2 puff INHALATION RT-Q6H PRN 11/27/20 11/27/20 Atorvastatin [Lipitor] 20 mg PO HS 11/27/20 11/27/20 Bydureon Bcise 2mg Autoinject 1 dose SQ LOUIS 11/27/20 11/27/20 Carvedilol [Coreg] 25 mg PO BID 11/27/20 11/27/20 Cholecalciferol [Vitamin D3 (25 25 mcg PO DAILY 11/27/20 11/27/20 Mcg = 1000 Iu)] Citalopram Hydrobromide [CeleXA] 10 mg PO DAILY 11/27/20 11/27/20 Fluticasone Nasal [place] [Flonase 2 spr EA NOSTRIL DAILY 11/27/20 11/27/20 Nasal [place]] Gabapentin 300 mg PO BID 11/27/20 11/27/20 Losartan Potassium 50 mg PO DAILY 11/27/20 11/27/20 Potassium Chloride ER [K-Dur 10] 20 meq PO BID 11/27/20 11/27/20 Sildenafil Citrate 100 mg PO DAILY PRN 11/27/20 11/27/20 Tamsulosin HCl [Flomax] 0.4 mg PO DAILY 11/27/20 11/27/20 buPROPion HCL [Wellbutrin XL] 300 mg PO DAILY 11/27/20 11/27/20 Previous Rx's Medication Instructions Recorded Cephalexin [Keflex] 500 mg PO Q6HR 7 Days #28 cap 11/27/20 Sulfamethox-Tmp 800-160Mg [Bactrim 1 each PO Q12HR 7 Days #14 tab 11/27/20 Ds] Allergies Allergy/AdvReac Type Severity Reaction Status Date / Time chocolate flavor AdvReac congested Verified 11/27/20 21:53 corn AdvReac congested Verified 11/27/20 21:53 tomato AdvReac congested Verified 11/27/20 21:53 Review of Systems ROS Statement: Those systems with pertinent positive or pertinent negative responses have been documented in the HPI. ROS Other: All systems not noted in ROS Statement are negative. Past Medical History Past Medical History: Diabetes Mellitus, Hypertension, Renal Disease Additional Past Medical History / Comment(s): Stage three Kidney disease History of Any Multi-Drug Resistant Organisms: None Reported Past Surgical History: Cholecystectomy, Coronary Bypass/CABG, Prostate Surgery, Tonsillectomy Additional Past Surgical History / Comment(s): deviated septum repair Past Anesthesia/Blood Transfusion Reactions: No Reported Reaction Past Psychological History: Anxiety, Depression Smoking Status: Never smoker Past Alcohol Use History: Occasional Past Drug Use History: None Reported General Exam Limitations: no limitations Course Vital Signs 02/22/21 02/22/21 02/22/21 20:15 20:21 20:57 Temperature 99.4 F Pulse Rate 104 H 107 H Pulse Rate [ 105 H Dragger Out ] Respiratory 16 18 Rate Blood Pressure 140/90 126/74 O2 Sat by Pulse 96 96 Oximetry EKG Findings - EKG Comments: EKG Findings:: EKG demonstrates a sinus rhythm with a ventricular rate of 94. OR interval 148. QRS 94. QTC 477. No acute ST segment elevations or depressions Medical Decision Making - Medical Decision Making Upon arrival patient is placed into room 22. Thorough history and physical exam was performed. Patient up to continuous pulse ox and cardiac monitoring. He does demonstrate a mild tachycardia. His oxygenation is 96% and therefore he is placed on nasal cannula. Temp is 99.4. Laboratory studies are conducted. Creatinine is 1.7 which is near the patient's baseline. Chest x-ray demonstrates mild pleural reaction left lung base. CT of his head demonstrates no acute intracranial findings. Spondylytic changes. CT of the patient's chest is performed due to his tachycardia, mild hypoxia and syncope. Demonstrates no evidence of pulmonary embolism. The patient is reevaluated and reports feeling much more comfortable at this time. His heart rate has improved. He is requesting something for his headache. Originally given thousand milligrams Tylenol. This is followed by Reglan, Benadryl and a dose of morphine. I did recommend admission for syncope for which the patient did agree to. Spoke with Dr. Gonzalez who agreed to admit the patient. He is currently awaiting a bed on the floor - Lab Data Result diagrams: 02/22/21 21:57 02/22/21 21:57 Lab Results 02/22/21 02/22/21 02/22/21 Range/Units 21:57 21:57 21:57 WBC 9.3 (3.8-10.6) k/uL RBC 5.40 (4.30-5.90) m/uL Hgb 16.4 (13.0-17.5) gm/dL Hct 49.1 (39.0-53.0) % MCV 91.0 (80.0-100.0) fL MCH 30.5 (25.0-35.0) pg MCHC 33.5 (31.0-37.0) g/dL RDW 13.4 (11.5-15.5) % Plt Count 209 (150-450) k/uL MPV 7.3 Neutrophils % 85 % Lymphocytes % 7 % Monocytes % 5 % Eosinophils % 0 % Basophils % 1 % Neutrophils # 7.8 H (1.3-7.7) k/uL Lymphocytes # 0.7 L (1.0-4.8) k/uL Monocytes # 0.5 (0-1.0) k/uL Eosinophils # 0.0 (0-0.7) k/uL Basophils # 0.1 (0-0.2) k/uL PT (9.0-12.0) sec INR (<1.2) APTT (22.0-30.0) sec Sodium (137-145) mmol/L Potassium (3.5-5.1) mmol/L Chloride (98-107) mmol/L Carbon Dioxide (22-30) mmol/L Anion Gap mmol/L BUN (9-20) mg/dL Creatinine (0.66-1.25) mg/dL Est GFR (CKD-EPI)AfAm (>60 ml/min/1.73 sqM) Est GFR (CKD-EPI)NonAf (>60 ml/min/1.73 sqM) Glucose (74-99) mg/dL Plasma Lactic Acid Rell (0.7-2.0) mmol/L Calcium (8.4-10.2) mg/dL Total Bilirubin (0.2-1.3) mg/dL AST (17-59) U/L ALT (4-49) U/L Alkaline Phosphatase (38-126) U/L Troponin I (0.000-0.034) ng/mL Total Protein (6.3-8.2) g/dL Albumin (3.5-5.0) g/dL Urine Color Light Yellow Urine Appearance Clear (Clear) Urine pH 5.0 (5.0-8.0) Ur Specific [place] 1.011 (1.001-1.035) Urine Protein Negative (Negative) Urine Glucose (UA) Negative (Negative) Urine Ketones Negative (Negative) Urine Blood Negative (Negative) Urine Nitrite Negative (Negative) Urine Bilirubin Negative (Negative) Urine Urobilinogen <2.0 (<2.0) mg/dL Ur Leukocyte Esterase Negative (Negative) Coronavirus (PCR) Not Detected (Not Detectd) 02/22/21 02/22/21 02/22/21 Range/Units 21:57 21:57 21:57 WBC (3.8-10.6) k/uL RBC (4.30-5.90) m/uL Hgb (13.0-17.5) gm/dL Hct (39.0-53.0) % MCV (80.0-100.0) fL MCH (25.0-35.0) pg MCHC (31.0-37.0) g/dL RDW (11.5-15.5) % Plt Count (150-450) k/uL MPV Neutrophils % % Lymphocytes % % Monocytes % % Eosinophils % % Basophils % % Neutrophils # (1.3-7.7) k/uL Lymphocytes # (1.0-4.8) k/uL Monocytes # (0-1.0) k/uL Eosinophils # (0-0.7) k/uL Basophils # (0-0.2) k/uL PT 10.8 (9.0-12.0) sec INR 1.0 (<1.2) APTT 23.2 (22.0-30.0) sec Sodium 134 L (137-145) mmol/L Potassium 4.9 (3.5-5.1) mmol/L Chloride 107 (98-107) mmol/L Carbon Dioxide 18 L (22-30) mmol/L Anion Gap 9 mmol/L BUN 20 (9-20) mg/dL Creatinine 1.71 H (0.66-1.25) mg/dL Est GFR (CKD-EPI)AfAm 47 (>60 ml/min/1.73 sqM) Est GFR (CKD-EPI)NonAf 40 (>60 ml/min/1.73 sqM) Glucose 100 H (74-99) mg/dL Plasma Lactic Acid Rell 1.0 (0.7-2.0) mmol/L Calcium 9.2 (8.4-10.2) mg/dL Total Bilirubin 1.2 (0.2-1.3) mg/dL AST 64 H (17-59) U/L ALT 36 (4-49) U/L Alkaline Phosphatase 68 (38-126) U/L Troponin I (0.000-0.034) ng/mL Total Protein 7.0 (6.3-8.2) g/dL Albumin 4.0 (3.5-5.0) g/dL Urine Color Urine Appearance (Clear) Urine pH (5.0-8.0) Ur Specific [place] (1.001-1.035) Urine Protein (Negative) Urine Glucose (UA) (Negative) Urine Ketones (Negative) Urine Blood (Negative) Urine Nitrite (Negative) Urine Bilirubin (Negative) Urine Urobilinogen (<2.0) mg/dL Ur Leukocyte Esterase (Negative) Coronavirus (PCR) (Not Detectd) 02/22/21 Range/Units 21:57 WBC (3.8-10.6) k/uL RBC (4.30-5.90) m/uL Hgb (13.0-17.5) gm/dL Hct (39.0-53.0) % MCV (80.0-100.0) fL MCH (25.0-35.0) pg MCHC (31.0-37.0) g/dL RDW (11.5-15.5) % Plt Count (150-450) k/uL MPV Neutrophils % % Lymphocytes % % Monocytes % % Eosinophils % % Basophils % % Neutrophils # (1.3-7.7) k/uL Lymphocytes # (1.0-4.8) k/uL Monocytes # (0-1.0) k/uL Eosinophils # (0-0.7) k/uL Basophils # (0-0.2) k/uL PT (9.0-12.0) sec INR (<1.2) APTT (22.0-30.0) sec Sodium (137-145) mmol/L Potassium (3.5-5.1) mmol/L Chloride (98-107) mmol/L Carbon Dioxide (22-30) mmol/L Anion Gap mmol/L BUN (9-20) mg/dL Creatinine (0.66-1.25) mg/dL Est GFR (CKD-EPI)AfAm (>60 ml/min/1.73 sqM) Est GFR (CKD-EPI)NonAf (>60 ml/min/1.73 sqM) Glucose (74-99) mg/dL Plasma Lactic Acid Rell (0.7-2.0) mmol/L Calcium (8.4-10.2) mg/dL Total Bilirubin (0.2-1.3) mg/dL AST (17-59) U/L ALT (4-49) U/L Alkaline Phosphatase (38-126) U/L Troponin I <0.012 (0.000-0.034) ng/mL Total Protein (6.3-8.2) g/dL Albumin (3.5-5.0) g/dL Urine Color Urine Appearance (Clear) Urine pH (5.0-8.0) Ur Specific [place] (1.001-1.035) Urine Protein (Negative) Urine Glucose (UA) (Negative) Urine Ketones (Negative) Urine Blood (Negative) Urine Nitrite (Negative) Urine Bilirubin (Negative) Urine Urobilinogen (<2.0) mg/dL Ur Leukocyte Esterase (Negative) Coronavirus (PCR) (Not Detectd) Disposition Clinical Impression: Syncope and collapse, Concussion Disposition: ADMITTED IP TO THIS [facility] Condition: Stable Is patient prescribed a controlled substance at d/c from ED?: No Referrals: Dwayne Chaparro MD [Primary Care Provider] - 1-2 days Decision to Admit Reason: Admit from EC Decision Date: 02/23/21 Decision Time: 00:40
[2021-02-23] MEDS ORDERED: NALOXONE 0.4 MG/ML 1 ML VIAL IV PRN (00:40)
[2021-02-23] MEDS ORDERED: ONDANSETRON 4 MG/2 ML VIAL IVP PRN (00:40)
[2021-02-23] MEDS ORDERED: HYDROcodone/APAP 7.5-325MG 1 EACH TAB PO PRN (00:49)
[2021-02-23] MEDS ORDERED: MORPHINE SULFATE 4 MG/ML SYRINGE IVP STA (00:50)
--- NOTE | 2021-02-23 05:09 | P.HPIM ---
History of Present Illness H&P Date: 02/23/21 Chief Complaint: Syncope 70-year-old male with CK D stage III diabetes mellitus and hypertension Was at status of health at home when he passed out in the bathroom family heard a thud and went to check on him and he had apparently passed out against the door and blocked it family had to wait until he regained consciousness after couple minutes and open the door called EMS he was confused after the episode. Patient wasn't very engaged during the interview he seems to be sleepy. He currently denies any chest pain trouble breathing palpitations. He reports no prior history of syncope or near syncope. He denies being on any blood thinners he is not sure if he hit his head but apparently he did. He complaints of headache at this time which she often gets these episodes of headache generalized type of headache not associated with any vision changes or hearing changes he denies any focal neuro deficits. He denies any nausea vomiting loss of bladder or bowel control denies any tongue biting. Patient did feel dizzy after the episode and he was confused however he doesn't recall any palpitations wheezing or chest pain. In the ED imaging was done CT of the brain no acute pathology CT of the chest no PE chest x-ray unremarkable Blood work overall was unremarkable except for stable chronic kidney disease EKG showed normal sinus rhythm with prolonged QT interval Review of Systems Pertinent positives as noted in HPI. All other systems were reviewed and are negative Past Medical History Past Medical History: Diabetes Mellitus, Hypertension, Renal Disease Additional Past Medical History / Comment(s): Stage three Kidney disease History of Any Multi-Drug Resistant Organisms: None Reported Past Surgical History: Cholecystectomy, Coronary Bypass/CABG, Prostate Surgery, Tonsillectomy Additional Past Surgical History / Comment(s): deviated septum repair Past Anesthesia/Blood Transfusion Reactions: No Reported Reaction Past Psychological History: Anxiety, Depression Smoking Status: Never smoker Past Alcohol Use History: Occasional Past Drug Use History: None Reported - Past Family History Family Family Medical History: No Reported History Medications and Allergies Home Medications Medication Instructions Recorded Confirmed Type HYDROcodone/APAP 7.5-325MG [[place] 1 tab PO Q6H PRN 12/02/17 11/27/20 History 7.5-325] Zolpidem [Ambien] 5 mg PO HS PRN 12/02/17 11/27/20 History Albuterol Sulfate [Proair Hfa] 2 puff INHALATION RT-Q6H PRN 11/27/20 11/27/20 History Atorvastatin [Lipitor] 20 mg PO HS 11/27/20 11/27/20 History Bydureon Bcise 2mg Autoinject 1 dose SQ LOUIS 11/27/20 11/27/20 History Carvedilol [Coreg] 25 mg PO BID 11/27/20 11/27/20 History Cephalexin [Keflex] 500 mg PO Q6HR 7 Days #28 cap 11/27/20 Rx Cholecalciferol [Vitamin D3 (25 25 mcg PO DAILY 11/27/20 11/27/20 History Mcg = 1000 Iu)] Citalopram Hydrobromide [CeleXA] 10 mg PO DAILY 11/27/20 11/27/20 History Fluticasone Nasal [place] [Flonase 2 spr EA NOSTRIL DAILY 11/27/20 11/27/20 History Nasal [place]] Gabapentin 300 mg PO BID 11/27/20 11/27/20 History Losartan Potassium 50 mg PO DAILY 11/27/20 11/27/20 History Potassium Chloride ER [K-Dur 10] 20 meq PO BID 11/27/20 11/27/20 History Sildenafil Citrate 100 mg PO DAILY PRN 11/27/20 11/27/20 History Sulfamethox-Tmp 800-160Mg [Bactrim 1 each PO Q12HR 7 Days #14 tab 11/27/20 Rx Ds] Tamsulosin HCl [Flomax] 0.4 mg PO DAILY 11/27/20 11/27/20 History buPROPion HCL [Wellbutrin XL] 300 mg PO DAILY 11/27/20 11/27/20 History Allergies Allergy/AdvReac Type Severity Reaction Status Date / Time chocolate flavor AdvReac congested Verified 11/27/20 21:53 corn AdvReac congested Verified 11/27/20 21:53 tomato AdvReac congested Verified 11/27/20 21:53 Physical Exam Vitals: Vital Signs Temp Pulse Pulse Resp BP Pulse Ox 02/23/21 03:00 71 16 110/59 100 02/22/21 20:57 107 H 18 126/74 96 02/22/21 20:21 99.4 F 104 H 16 140/90 96 02/22/21 20:15 105 H Intake and Output 02/22/21 02/22/21 02/23/21 14:59 22:59 06:59 Other: Weight 88.451 kg Constitutional: No acute distress, pleasant, not engaged with interview Eyes: Anicteric sclerae, moist conjunctiva, no nystagmus Pupils equal round reactive to light ENMT: NC/AT Oropharynx clear, no erythema, or exudates Neck: Supple, no masses, or JVD No carotid bruits No thyromegaly Lungs: Clear to auscultation Clear to percussion Normal respiratory effort, no accessory muscle use Cardiovascular: Heart regular in rate and rhythm, No murmurs, gallops, or rubs No peripheral edema Abdominal: Soft Nontender, no guarding, rebound or rigidity Abdomen moving with respiration Normoactive bowel sounds No hepatomegaly, No splenomegaly No palpable mass No abdominal wall hernia noted Skin: Normal temperature, tone, texture, turgor Extremities: No digital cyanosis No clubbing Pedal pulses intact and symmetrical Radial pulses intact and symmetrical No calf tenderness Psychiatric: Alert and oriented to person, place and time Neuro Muscles Strength 4/5 in all 4 extremities Sensation to light touch grossly present throughout Cranial nerves II-XII grossly intact Lymphatics: no palpable cervical or supraclavicular , or inguinal lymph nodes Results CBC & Chem 7: 02/22/21 21:57 02/22/21 21:57 Labs: Abnormal Lab Results - Last 24 Hours (Table) 02/22/21 02/22/21 Range/Units 21:57 21:57 Neutrophils # 7.8 H (1.3-7.7) k/uL Lymphocytes # 0.7 L (1.0-4.8) k/uL Sodium 134 L (137-145) mmol/L Carbon Dioxide 18 L (22-30) mmol/L Creatinine 1.71 H (0.66-1.25) mg/dL Glucose 100 H (74-99) mg/dL AST 64 H (17-59) U/L Assessment and Plan Assessment: Syncope Rule out underlying cardiac causes Imaging showed computed tomography scan of the brain no acute pathology CT of the chest no PE Continue with neuro checks Cardiac monitoring Cardiology consult Troponins negative Continue supportive care Fall precautions Chronic conditions Diabetes mellitus, insulin sliding scale CK D3 stable creatinine, avoid nephrotoxic meds Monitor urine output and renal function Hypertension currently controlled resume Coreg and losartan Verify home medications DVT prophylaxis mechanical anticipated length of stay less than 2 midnights Expected discharge home
[2021-02-23 07:30] LABS: Glucose,Whole Blood 112 mg/dL (75-99)
[2021-02-23] MEDS ORDERED: ZOLPIDEM 5 MG TAB PO PRN (08:37)
--- NOTE | 2021-02-23 08:48 | US ---
EXAMINATION TYPE: US carotid duplex BILAT DATE OF EXAM: 02/23/2021 COMPARISON: NONE CLINICAL HISTORY: syncope. Patient states fainting last night. HTN controlled with meds. EXAM MEASUREMENTS: RIGHT: Peak Systolic Velocity (PSV) cm/sec ----- Right CCA: 76.8 ----- Right ICA: 58.1 ----- Right ECA: 96.9 ICA/CCA ratio: 0.8 RIGHT: End Diastole cm/sec ----- Right CCA: 13.1 ----- Right ICA: 17.5 ----- Right ECA: 0.0 LEFT: Peak Systolic Velocity (PSV) cm/sec ----- Left CCA: 66.9 ----- Left ICA: 73.5 ----- Left ECA: 103.4 ICA/CCA ratio: 1.1 LEFT: End Diastole cm/sec ----- Left CCA: 8.7 ----- Left ICA: 15.3 ----- Left ECA: 0.0 VERTEBRALS (direction of flow): Right Vertebral: Antegrade Left Vertebral: Antegrade Rhythm: Arrhythmia No elevated velocities. No significant stenosis. Wall thickening. Small amount of plaque in bilate ral bulbs. IMPRESSION: No evidence for hemodynamically significant stenosis. Criteria for Assigning % of Stenosis / Diameter reduction (Estimation based on the indirect measurements of the internal carotid artery velocities (ICA PSV). 1. Normal (no stenosis)=ICA PSV < 125 cm/s: ratio < 2.0: ICA EDV<40 cm/s. 2. Less than 50% stenosis=ICA PSV < 125 cm/s: ratio < 2.0: ICA EDV<40 cm/s. 3. 50 to 69% stenosis=ICA PSV of 125 to 230 cm/s: ration 2.0 ? 4.0: ICA EDV 40-100 cm/s. 4. Greater than 70% stenosis to near occlusion= ICA PSV > 230 cm/s: ratio > 4.0: ICA EDV > 100 cm/s. 5. Near occlusion= ICA PSV velocities may be low or undetectable: variable ratio and ICA EDV. 6. Total occlusion=unable to detect flow.
[2021-02-23] MEDS ORDERED: GABAPENTIN 300 MG CAP PO SCH (09:00)
[2021-02-23] MEDS ORDERED: FINASTERIDE 5 MG TAB PO SCH (09:00)
[2021-02-23] MEDS ORDERED: carvediloL 12.5 MG TAB PO SCH (09:00)
[2021-02-23] MEDS ORDERED: LOSARTAN 50 MG TAB PO SCH (09:00)
[2021-02-23] MEDS ORDERED: buPROPion XL 300 MG TAB.ER.24H PO SCH (09:00)
[2021-02-23] MEDS ORDERED: TAMSULOSIN 0.4 MG CAP.ER.24H PO SCH (09:00)
[2021-02-23] MEDS ORDERED: CHOLECALCIFEROL 25 MCG (1000 IU) TABLET PO SCH (09:00)
[2021-02-23] MEDS ORDERED: CITALOPRAM HYDROBROMIDE 10 MG TAB PO SCH (09:00)
[2021-02-23] MEDS ORDERED: FLUTICASONE 50MCG/SPRAY NASAL 16GM EA NOSTRIL SCH (09:00)
[2021-02-23] MEDS: INSULIN ASPART (NovoLOG) 100 UNIT/ML VIAL SQ SCH ×2 (09:21→13:04)
--- NOTE | 2021-02-23 10:53 | CONS ---
CONSULTATION CHIEF COMPLAINT: Syncope. This is a 70-year-old gentleman with history of coronary artery disease, status post CABG, hypertension, dyslipidemia and COPD who sees a instructional assistant out of town. He came into hospital having had an episode of syncope at home. Patient states that he was in the bathroom, fell down and apparently passed out for a couple of minutes. He was a little confused at that time, did not have any chest pain, bladder or bowel incontinence, did not have focal neurological deficits. He had one other episode of syncope while he was on vacation in [place], and at that time he thinks he was quite dehydrated. He has had a CT scan of the chest that is negative for pulmonary embolism. A chest x-ray is negative. CT brain is unremarkable. EKG shows sinus rhythm with a corrected QT interval of 477 milliseconds. Three sets of cardiac enzymes have been negative. Creatinine is elevated at 1.7. The exact etiology for the patient's syncope is unclear. So far, patient did not have myocardial infarction, pulmonary embolism, tachy- or bradyarrhythmias and does not have any evidence of ischemia. I advised the patient to undergo an echocardiogram, carotid duplex study and stress test for further evaluation. Understanding all the issues, he does not want to have a stress test at this time, wishes to go home, follow up with his own instructional assistant and have workup as outpatient. He understands the pros and cons of his decision. PAST MEDICAL HISTORY: Significant for coronary artery disease, status post CABG, hypertension, dyslipidemia, COPD. CURRENT MEDICATIONS: Current medications include Ambien 5 mg, sildenafil, vitamin B12, potassium, Lipitor 20 daily, Flomax, [place], Proscar, Wellbutrin, losartan 50 mg daily, Neurontin, Celexa, carvedilol 25 b.i.d., and albuterol. ALLERGIES: There are NO KNOWN DRUG ALLERGIES. FAMILY HISTORY: Negative for premature coronary artery disease. SOCIAL HISTORY: Negative for current smoking, EtOH abuse or drug abuse. REVIEW OF SYSTEMS: HEENT is unremarkable. CARDIAC: As described above. RESPIRATORY: Negative. GI: Negative. GENITOURINARY: Negative. ALLERGY/IMMUNOLOGY: Negative. SKIN: Negative. MUSCULOSKELETAL: Significant for arthritis. PSYCHOSOCIAL: Negative. ENDOCRINE: Negative. DERMATOLOGY: Negative. CONSTITUTIONAL: Negative. ONCOLOGICAL: Negative. CHANNEL WORKER: Negative. Rest of the system review is not relevant. PHYSICAL EXAMINATION: Patient's heart rate is 95 beats per minute, blood pressure is 127/82, respiratory rate is 18, O2 saturation is 97% on room air. There is no jugular venous distention. Carotid upstroke is normal. There is no bruit. Chest exam reveals good air entry bilaterally. Heart exam reveals first and second heart sounds. Systolic murmur at the left lower sternal border. Abdomen is soft. Examination of extremities did not reveal any edema. Peripheral pulses are felt. Labs are as described above. EKG is described above. CT scan is negative for pulmonary embolism. ASSESSMENT: 1. Syncope. Rule out cardiac causes. 2. Coronary artery disease, status post coronary artery bypass grafting. PLAN: Will follow the carotid and echocardiogram. He needs a stress test. Patient refuses it in the hospital, will have it done through his instructional assistant's office. If the carotid and the echo findings are benign, he may be discharged home and outpatient followup arranged with his own instructional assistant. LOUIE / VIDYAN: [id number] /
--- NOTE | 2021-02-23 12:00 | ECHOF ---
Referral Reason:syncope MEASUREMENTS -------- HEIGHT: 172.7 cm WEIGHT: 88.5 kg BP: RVIDd: 3.9 cm (< 3.3) IVSd: 1.0 cm (0.6 - 1.1) LVIDd: 4.5 cm (3.9 - 5.3) LVPWd: 0.8 cm (0.6 - 1.1) IVSs: 1.5 cm LVIDs: 3.0 cm LVPWs: 1.6 cm LA Diam: 4.1 cm (2.7 - 3.8) LAESV Index (A-L): 26.48 ml/m Ao Diam: 3.6 cm (2.0 - 3.7) AV Cusp: 1.5 cm (1.5 - 2.6) LA Diam: 4.5 cm (2.7 - 3.8) MV EXCURSION: 17.319 mm (> 18.000) MV EF SLOPE: 90 mm/s (70 - 150) EPSS: 0.8 cm MV E Karlo: 0.50 m/s MV DecT: 145 ms MV A Karlo: 0.66 m/s MV E/A Ratio: 0.75 RAP: 5.00 mmHg RVSP: 15.77 mmHg FINDINGS -------- Sinus rhythm. This was a technically good study. LV size, wall thickness and systolic function are normal, with an EF greater than 55%. The left pattie tricular size is normal. The right ventricle is normal in size. Normal LA size by volume 22+/-6 ml/m2. The right atrial size is normal. There is mild aortic valve sclerosis. There is no evidence of aortic regurgitation. Mild mitral regurgitation is present. Mild tricuspid regurgitation present. Right ventricular systolic pressure is normal at < 35 mmHg. There is no pulmonic regurgitation present. There is no pericardial effusion. CONCLUSIONS -------- 1. LV size, wall thickness and systolic function are normal, with an EF greater than 55%. 2. The left ventricular size is normal. 3. The right ventricle is normal in size. 4. Normal LA size by volume 22+/-6 ml/m2. 5. The right atrial size is normal. 6. There is mild aortic valve sclerosis. 7. Mild mitral regurgitation is present. 8. Mild tricuspid regurgitation present. 9. There is no pericardial effusion. 10 atypical septal motion EPIC SPECIALIST: Sulema Hebert RDCS
[2021-02-23 12:21] LABS: Glucose,Whole Blood 104 mg/dL (75-99)
--- NOTE | 2021-02-23 13:31 | P.DS ---
Providers Date of admission: 02/23/21 00:44 Expected date of discharge: 02/23/21 Attending physician: Ana Chen MD Consults: 02/23/21 00:42 Consult Physician Urgent Consulting Provider: [facility] Consult Reason/Comments: syncope Do you want consulting provider notified?: Yes Primary care physician: [facility] Course: This is a 70-year-old male with complex past medical history significant for stage IIIc daily, type 2 diabetes, and hypertension that presented to the emergency room with a syncopal episode. Patient had extensive evaluation in the ER including computed tomography scan of the brain and CT angiogram of the chest that were both negative for any acute findings. Patient was placed on observation/telemetry monitoring. No events noted on monitoring tech. Patient was seen and evaluated by cardiology. Echocardiogram showed preserved ejection fraction with no significant valvular abnormalities. Carotid Doppler showed no hemodynamically significant stenosis. Cardiology advised patient to undergo a cardiac stress test but patient refused and said that he would like to follow-up with his own practical nursing teacher. He will be discharged home in a stable condition. Continue home regimen and follow-up with his own practical nursing teacher as directed. For further details about this hospitalization please refer to the electronic chart. Patient was seen and evaluated by me in the emergency room. Physical exam: General: The patient is awake and alert, in no distress Eye: there is normal conjunctiva bilaterally. Neck: The neck is supple, there is no JVD. Cardiovascular: Normal S1-S2, no S3-S4, no murmurs. Respiratory: Lungs clear to auscultation bilaterally Gastrointestinal: Abdomen is soft, nontender Musculoskeletal: There is no pedal edema. Neurological:. Speech is normal. Skin: Skin is warm and dry Patient Condition at Discharge: Stable Plan - Discharge Summary New Discharge Prescriptions: Continue HYDROcodone/APAP 7.5-325MG [[place] 7.5-325] 1 tab PO TID PRN PRN Reason: Pain Zolpidem [Ambien] 5 mg PO HS PRN PRN Reason: Insomnia Atorvastatin [Lipitor] 20 mg PO HS Gabapentin 300 mg PO BID Sildenafil Citrate 100 mg PO DAILY PRN PRN Reason: E.D. Losartan Potassium 50 mg PO DAILY Cholecalciferol [Vitamin D3 (25 Mcg = 1000 Iu)] 25 mcg PO DAILY Azelastine HCl [Astepro] 2 spray NASAL BID Potassium Citrate [Potassium Citrate ER] 20 meq PO BID Tamsulosin HCl [Flomax] 0.4 mg PO BID Citalopram Hydrobromide [CeleXA] 10 mg PO DAILY buPROPion HCL [Wellbutrin XL] 300 mg PO DAILY Fluticasone Nasal [place] [Flonase Nasal [place]] 2 spr EA NOSTRIL DAILY Albuterol Sulfate [Proair Hfa] 2 puff INHALATION RT-Q6H PRN PRN Reason: Shortness Of Breath Carvedilol [Coreg] 25 mg PO BID Finasteride [Proscar] 5 mg PO DAILY Exenatide Microspheres [Bydureon Bcise Auto-Injector] 2 mg SQ [place]OU[place] Pyridoxine HCl (Vitamin B6) [Vitamin B-6] 100 mg PO DAILY Cyanocobalamin (Vitamin B-12) [Vitamin B-12] 1,000 mcg PO DAILY Discharge Medication List HYDROcodone/APAP 7.5-325MG [[place] 7.5-325] 1 tab PO TID PRN 12/02/17 [History] Zolpidem [Ambien] 5 mg PO HS PRN 12/02/17 [History] Albuterol Sulfate [Proair Hfa] 2 puff INHALATION RT-Q6H PRN 11/27/20 [History] Atorvastatin [Lipitor] 20 mg PO HS 11/27/20 [History] Carvedilol [Coreg] 25 mg PO BID 11/27/20 [History] Cholecalciferol [Vitamin D3 (25 Mcg = 1000 Iu)] 25 mcg PO DAILY 11/27/20 [History] Citalopram Hydrobromide [CeleXA] 10 mg PO DAILY 11/27/20 [History] Fluticasone Nasal [place] [Flonase Nasal [place]] 2 spr EA NOSTRIL DAILY 11/27/20 [History] Gabapentin 300 mg PO BID 11/27/20 [History] Losartan Potassium 50 mg PO DAILY 11/27/20 [History] Sildenafil Citrate 100 mg PO DAILY PRN 11/27/20 [History] Tamsulosin HCl [Flomax] 0.4 mg PO BID 11/27/20 [History] buPROPion HCL [Wellbutrin XL] 300 mg PO DAILY 11/27/20 [History] Azelastine HCl [Astepro] 2 spray NASAL BID 02/23/21 [History] Cyanocobalamin (Vitamin B-12) [Vitamin B-12] 1,000 mcg PO DAILY 02/23/21 [History] Exenatide Microspheres [Bydureon Bcise Auto-Injector] 2 mg SQ [place]OUIS 02/23/21 [History] Finasteride [Proscar] 5 mg PO DAILY 02/23/21 [History] Potassium Citrate [Potassium Citrate ER] 20 meq PO BID 02/23/21 [History] Pyridoxine HCl (Vitamin B6) [Vitamin B-6] 100 mg PO DAILY 02/23/21 [History] Follow up Appointment(s)/Referral(s): Dwayne Chaparro MD [Primary Care Provider] - 1-2 days Discharge Disposition: HOME SELF-CARE
[2021-02-23 14:47] VITALS: BP 119/83; PULSE 77; RESP 16; TEMP 97.9
[2021-02-23] MEDS ORDERED: ATORVASTATIN 20 MG TAB PO SCH (21:00)
== END 2021-02-23 16:27 | disposition home or self-care (01) ==
LOC: EC 20:09 → 1SOBS 02-23 00:44 → 6NMEDSUR 02-23 15:30
PROVIDERS: ADMIT Internal Medicine; ATTEND Internal Medicine
DX: R55 Syncope and collapse (principal); R09.02 Hypoxemia; S06.0X9A Concussion with loss of consciousness of unspecified duration, initial encounter; Y92.002 Bathroom of unspecified non-institutional (private) residence as the place of occurrence of the external cause; I12.9 Hypertensive chronic kidney disease with stage 1 through stage 4 chronic kidney disease, or unspecified chronic kidney disease; E11.22 Type 2 diabetes mellitus with diabetic chronic kidney disease; E78.5 Hyperlipidemia, unspecified; R00.0 Tachycardia, unspecified; Z20.822 Contact with and (suspected) exposure to COVID-19; N18.30 Chronic kidney disease, stage 3 unspecified; I25.10 Atherosclerotic heart disease of native coronary artery without angina pectoris; I71.2 Thoracic aortic aneurysm, without rupture; J44.9 Chronic obstructive pulmonary disease, unspecified; F32.9 Major depressive disorder, single episode, unspecified; F41.9 Anxiety disorder, unspecified; Z79.4 Long term (current) use of insulin; Z79.899 Other long term (current) drug therapy; Z91.018 Allergy to other foods; Z90.49 Acquired absence of other specified parts of digestive tract; Z98.890 Other specified postprocedural states; Z95.1 Presence of aortocoronary bypass graft
CPT/HCPCS: 99285; 96374; 96375; 36415; 93005; 93306; 80053; 83605; 84484 ×2; 85025; 85610; 85730; 81003; 87040; 87635; 71046; 93880; 72125; 70450; 71275; G0378; S0138; J1200; J2765; J2405; Q9967

== ENCOUNTER → 2021-04-02 | Outpatient (CLI) | payer MEDICARE ==
[2021-04-02 16:44] LABS: Appearance,Urine Clear (Clear); Bilirubin,Urine Negative (Negative); Blood,Urine Negative (Negative); Color,Urine Yellow; Glucose,Urine (UA) 3+ (Negative); Ketones,Urine Negative (Negative); Leukocyte Esterase,Urine Negative (Negative); Nitrite,Urine Negative (Negative); Protein,Urine Trace (Negative); Specific Gravity,Urine 1.027 (1.001-1.035); Urobilinogen,Urine <2.0 mg/dL (<2.0)
[2021-04-02 16:51] LABS: Creatinine,Urine Random 173.6 mg/dL; Protein/Creatinine Ratio,Urine 0.081
[2021-04-02 23:36] LABS: Basophils # (A) 0 X 10*3/uL (0.00-0.10); Basophils % (A) 0 %; Eosinophils # (A) 0.01 X 10*3/uL (0.04-0.35); Eosinophils % (A) 0.1 %; HCT 42.1 % (39.6-50.0); HGB 13.5 g/dL (13.0-17.0); Lymphocytes # (A) 0.72 X 10*3/uL (0.90-5.00); Lymphocytes % (A) 9.2 %; MCH 29.2 pg (27.0-32.0); MCHC 32.1 g/dL (32.0-37.0); MCV 91.1 fL (80.0-97.0); Mean Platelet Volume 9.8 fL (9.5-12.2); Monocytes # (A) 0.32 X 10*3/uL (0.20-1.00); Monocytes % (A) 4.1 %; Neutrophils # (A) 6.78 X 10*3/uL (1.80-7.70); Neutrophils % (A) 86.2 %; Platelet Count 226 X 10*3/uL (140-440); RBC 4.62 X 10*6/uL (4.40-5.60); RDW 13.3 % (11.5-14.5); WBC 7.86 X 10*3/uL (4.50-10.00)
[2021-04-03 01:12] LABS: African American GFR (CKD) 59.9 (60.0-200.0); Anion Gap 13.2 mmol/L (10.00-18.00); BUN/Creat Ratio 16.4 Ratio (12.00-20.00); Blood Urea Nitrogen 22.8 mg/dL (9.0-27.0); Calcium 9.1 mg/dL (8.7-10.3); Carbon Dioxide 20.5 mmol/L (20.0-27.5); Non-African American GFR(CKD) 51.7 (60.0-200.0); Phosphorus 3.1 mg/dL (2.4-5.1); Potassium 5.1 mmol/L (3.5-5.5)
== END | disposition home or self-care (01) ==
LOC: LABWHC1 14:53
PROVIDERS: ATTEND Internal Medicine Nephrology
DX: N18.30 Chronic kidney disease, stage 3 unspecified (principal)
CPT/HCPCS: 36415; 80048; 81003; 82570; 83970; 84100; 84156; 85025

== ENCOUNTER → 2021-10-05 | Outpatient (CLI) | payer MEDICARE ==
[2021-10-05 17:30] LABS: Creatinine,Urine Random 149.4 mg/dL
[2021-10-05 22:21] LABS: Basophils # (A) 0.05 X 10*3/uL (0.00-0.10); Basophils % (A) 0.6 %; Eosinophils # (A) 0.22 X 10*3/uL (0.04-0.35); Eosinophils % (A) 2.5 %; HCT 49.8 % (39.6-50.0); HGB 15.6 g/dL (13.0-17.0); Immature Grans, Automated 0.3 %; Lymphocytes # (A) 1.72 X 10*3/uL (0.90-5.00); Lymphocytes % (A) 19.2 %; MCHC 31.3 g/dL (32.0-37.0); MCV 89.2 fL (80.0-97.0); Mean Platelet Volume 9.9 fL (9.5-12.2); NRBC Per 100 WBC 0 /100 WBCS (0.0-0.0); Neutrophils # (A) 6.05 X 10*3/uL (1.80-7.70); Neutrophils % (A) 67.4 %; Platelet Count 296 X 10*3/uL (140-440); RBC 5.58 X 10*6/uL (4.40-5.60); RDW 13.2 % (11.5-14.5); WBC 8.97 X 10*3/uL (4.50-10.00)
[2021-10-05 23:09] LABS: African American GFR (CKD) 53.4 (60.0-200.0); Anion Gap 10.4 mmol/L (10.00-18.00); BUN/Creat Ratio 12.3 Ratio (12.00-20.00); Blood Urea Nitrogen 18.7 mg/dL (9.0-27.0); Calcium 9.5 mg/dL (8.7-10.3); Carbon Dioxide 28.1 mmol/L (20.0-27.5); Non-African American GFR(CKD) 46.1 (60.0-200.0); Phosphorus 3.3 mg/dL (2.4-5.1)
[2021-10-05 23:25] LABS: Appearance,Urine Clear (Clear); Bilirubin,Urine Negative (Negative); Blood,Urine Negative (Negative); Color,Urine Dark Yellow (Yellow); Ketones,Urine Trace mg/dL (Negative); Nitrite,Urine Negative (Negative); Specific Gravity,Urine 1.023 (1.001-1.030); Urobilinogen,Urine 0.2 (0.2,1.0)
== END | disposition home or self-care (01) ==
LOC: LABWHC1 16:11
PROVIDERS: ATTEND Internal Medicine Nephrology
DX: N18.30 Chronic kidney disease, stage 3 unspecified (principal); D64.9 Anemia, unspecified; N25.81 Secondary hyperparathyroidism of renal origin; N39.0 Urinary tract infection, site not specified
CPT/HCPCS: 36415; 80048; 81003; 82570; 83970; 84100; 84156; 85025

== ENCOUNTER → 2022-07-23 | Outpatient (CLI) | payer MEDICARE ==
[2022-07-23 18:48] LABS: African American GFR (CKD) 46.7 (60.0-200.0); Blood Urea Nitrogen 17.2 mg/dL (9.0-27.0); Non-African American GFR(CKD) 40.3 (60.0-200.0)
== END | disposition home or self-care (01) ==
LOC: LABWHC1 13:16
PROVIDERS: ATTEND Thoracic Surgery (Cardiothoracic Vascular Surgery)
DX: R54 Age-related physical debility (principal)
CPT/HCPCS: 36415; 82565; 84520

== ENCOUNTER → 2022-09-01 | Outpatient (CLI) | payer MEDICARE ==
[2022-09-01 20:43] LABS: Protein, Total 6.7 g/dL (6.2-8.2)
[2022-09-01 23:32] LABS: HIV 2 AB Non-Reactive (Non-Reactive); HIV AB P24 Non-Reactive (Non-Reactive); HIV P24 AG Non-Reactive (Non-Reactive)
[2022-09-03 07:26] LABS: Zinc, Serum 66 ug/dL (60-130)
[2022-09-03 07:44] LABS: Albumin 4.05 g/dL (3.80-4.90); Gamma Globulin 0.81 g/dL (0.70-1.50)
== END | disposition home or self-care (01) ==
LOC: LABWHC1 12:36
PROVIDERS: ATTEND Psychiatry & Neurology Neurology
DX: R41.3 Other amnesia (principal); G61.9 Inflammatory polyneuropathy, unspecified
CPT/HCPCS: 36415; 82175; 82525; 82570; 82607; 83655; 83825; 84165; 84207; 84425; 84446; 84630; 86334; 86780; 87390

== ENCOUNTER 2023-06-15 00:12 | Emergency (ER) | payer MEDICARE ==
[2023-06-15 00:24] LABS: Glucose,Whole Blood 162 mg/dL (70-110)
--- NOTE | 2023-06-15 01:51 | ED ---
General Adult HPI - General Source: patient Mode of arrival: wheelchair Limitations: no limitations <Alfred Prasad - Last Filed: 06/15/23 01:51> <Marvin Hearn - Last Filed: 06/21/23 01:46> - General Chief complaint: Weakness Stated complaint: cough chills weakness Time Seen by Provider: 06/15/23 01:50 - History of Present Illness Initial comments: 72-year-old male presents to the ED with a chief complaint of lightheadedness. Patient reports over the past 4 weeks has had intermittent episodes of lightheadedness describes as feeling as if he went to pass out. Per family, patient had an episode tonight where he was not acting his usual self. Was saying "weird things". At this time reports his back is normal self. (Alfred Prasad) - Related Data Home Medications Medication Instructions Recorded Confirmed HYDROcodone/APAP 7.5-325MG [[place] 1 tab PO TID PRN 12/02/17 02/23/21 7.5-325] Zolpidem [Ambien] 5 mg PO HS PRN 12/02/17 02/23/21 Albuterol Sulfate [Proair Hfa] 2 puff INHALATION RT-Q6H PRN 11/27/20 02/23/21 Atorvastatin [Lipitor] 20 mg PO HS 11/27/20 02/23/21 Cholecalciferol [Vitamin D3 (25 25 mcg PO DAILY 11/27/20 02/23/21 Mcg = 1000 Iu)] Citalopram Hydrobromide [CeleXA] 10 mg PO DAILY 11/27/20 02/23/21 Fluticasone Nasal [place] [Flonase 2 spr EA NOSTRIL DAILY 11/27/20 02/23/21 Nasal [place]] Gabapentin 300 mg PO BID 11/27/20 02/23/21 Losartan Potassium 50 mg PO DAILY 11/27/20 02/23/21 Sildenafil Citrate 100 mg PO DAILY PRN 11/27/20 02/23/21 Tamsulosin HCl [Flomax] 0.4 mg PO BID 11/27/20 02/23/21 buPROPion HCL [Wellbutrin XL] 300 mg PO DAILY 11/27/20 02/23/21 carvediloL [Coreg] 25 mg PO BID 11/27/20 02/23/21 Azelastine HCl [Astepro] 2 spray NASAL BID 02/23/21 02/23/21 Cyanocobalamin (Vitamin B-12) 1,000 mcg PO DAILY 02/23/21 02/23/21 [Vitamin B-12] Exenatide Microspheres [Bydureon 2 mg SQ [place] 02/23/21 02/23/21 Bcise Auto-Injector] Finasteride [Proscar] 5 mg PO DAILY 02/23/21 02/23/21 Potassium Citrate [Potassium 20 meq PO BID 02/23/21 02/23/21 Citrate ER] Pyridoxine HCl (Vitamin B6) 100 mg PO DAILY 02/23/21 02/23/21 [Vitamin B-6] Allergies Allergy/AdvReac Type Severity Reaction Status Date / Time chocolate flavor AdvReac congested Verified 06/15/23 00:19 corn AdvReac congested Verified 06/15/23 00:19 tomato AdvReac congested Verified 06/15/23 00:19 Review of Systems ROS Other: All systems not noted in ROS Statement are negative. <Alfred Prasad - Last Filed: 06/15/23 01:51> ROS Other: All systems not noted in ROS Statement are negative. <Marvin Hearn - Last Filed: 06/21/23 01:46> ROS Statement: Those systems with pertinent positive or pertinent negative responses have been documented in the HPI. Past Medical History Past Medical History: Diabetes Mellitus, Hypertension, Renal Disease Additional Past Medical History / Comment(s): Stage three Kidney disease History of Any Multi-Drug Resistant Organisms: None Reported Past Surgical History: Cholecystectomy, Coronary Bypass/CABG, Prostate Surgery, Tonsillectomy Additional Past Surgical History / Comment(s): deviated septum repair Past Anesthesia/Blood Transfusion Reactions: No Reported Reaction Past Psychological History: Anxiety, Depression Smoking Status: Never smoker Past Alcohol Use History: Occasional Past Drug Use History: None Reported - Past Family History Family Family Medical History: No Reported History <Alfred Prasad - Last Filed: 06/15/23 01:51> General Exam Limitations: no limitations <Alfred Prasad - Last Filed: 06/15/23 01:51> Limitations: no limitations General appearance: alert, in no apparent distress Head exam: Present: atraumatic, normocephalic Eye exam: Present: normal appearance. Absent: scleral icterus, conjunctival injection ENT exam: Present: mucous membranes dry Neck exam: Present: normal inspection Respiratory exam: Present: normal lung sounds bilaterally. Absent: respiratory distress, wheezes, rales, rhonchi, stridor, accessory muscle use Cardiovascular Exam: Present: normal rhythm, tachycardia, normal heart sounds. Absent: systolic murmur, diastolic murmur, rubs, gallop GI/Abdominal exam: Present: soft. Absent: distended, tenderness, guarding, rebound, rigid, mass Extremities exam: Present: normal inspection, normal capillary refill Back exam: Present: normal inspection. Absent: CVA tenderness (R), CVA tenderness (L) Neurological exam: Present: alert, oriented X3, CN II-XII intact. Absent: motor sensory deficit Skin exam: Present: warm, dry, intact, normal color. Absent: rash <Marvin Hearn - Last Filed: 06/21/23 01:46> - General Exam Comments Initial Comments: Visual Physical Exam Vital signs reviewed General: Well-appearing, nontoxic, no acute distress. Head: Normocephalic, atraumatic Eyes: PERRLA, EOMI ENT: Airway patent Chest: Nonlabored breathing Skin: No visual rash, normal skin tone Neuro: Alert and oriented 3 Musculoskeletal: No gross abnormalities (Cabatu,Alfred) Course Vital Signs 06/15/23 06/15/23 06/15/23 00:14 03:52 04:10 Temperature 99.7 F H 98.3 F 99.7 F H Pulse Rate 114 H 102 H 114 H Respiratory 18 18 Rate Blood Pressure 115/76 119/94 115/76 O2 Sat by Pulse 93 L 96 Oximetry 06/15/23 06/15/23 06/15/23 05:00 06:48 06:50 Temperature 98.9 F 98.6 F Pulse Rate 95 98 95 Respiratory 16 18 18 Rate Blood Pressure 117/73 118/80 116/78 O2 Sat by Pulse 95 98 95 Oximetry EKG Findings - EKG Results: EKG: interpreted by ERMD, sinus rhythm, normal axis EKG shows: tachycardia - Blocks, [place], Hypertrophy, ST Abn: AV and intraventricular conduction: right bundle branch block (fixed/intermittent, complete/incomplete) (Partial) Chamber hypertrophy or enlargement: only voltage criteria for left ventricular hypertrophy <Marvin Hearn - Last Filed: 06/21/23 01:46> Medical Decision Making <Alfred Prasad - Last Filed: 06/15/23 01:51> - Lab Data Result diagrams: 06/15/23 02:29 06/15/23 02:29 <Marvin Hearn - Last Filed: 06/21/23 01:46> - Medical Decision Making Quicknote portion performed. Signed Alfred Prasad PA-C (Alfred Prasad) The patient had chest x-ray which I interpreted as negative for acute infiltrate or pneumothorax The patient had CT of the brain which I interpreted as negative for acute bony injury or intracranial hemorrhage Patient is a 72-year-old man who presented with history that sounded very much like acute delirium. The patient is found to have influenza A and may have had episode of fever with associated delirium. In the department here the patient's mentation appears back at baseline per the patient's family. The patient did have mildly elevated troponin and I did recommend that he stay to have cardiology consultation, but the patient states he is feeling well and is going to go home and he will follow with cardiology as outpatient. He does not have any chest symptoms at time of discharge. I did explain that there is risk of progression and missed ND, but patient decides to go even after being informed of risks. The patient's family is supportive of his decision. The patient not exhibiting any signs or symptoms of delirium at time of deciding to leave AGAINST MEDICAL ADVICE Was pt. sent in by a medical professional or institution (, PA, OPERATIONS MANAGER ASSISTANT, urgent care, hospital, or halfway...) When possible be specific @ -[No] Did you speak to anyone other than the patient for history (EMS, parent, family, police, friend...)? What history was obtained from this source @ -[No] Did you review nursing and triage notes (agree or disagree)? Why? @ -[I reviewed and agree with nursing and triage notes] Were old charts reviewed (outside hosp., previous admission, EMS record, old EKG, old radiological studies, urgent care reports/EKG's, halfway records)? Report findings @ -[No old charts were reviewed] Differential Diagnosis (chest pain, altered mental status, abdominal pain women, abdominal pain men, vaginal bleeding, weakness, fever, dyspnea, syncope, headache, dizziness, GI bleed, back pain, seizure, CVA, palpatations, mental health, musculoskeletal)? @ -[Differential Altered Mental Status: Hypoglycemia, DKA, hypercapnia, ETOH, overdose, CO poisoning, trauma, myxedema coma, HTN encephalopathy, infection, encephalitis, psychosis, intercranial hemorrhage, hepatic encephalopathy, meningitis, CVA, this is not meant to be an all-inclusive list EKG interpreted by me (3pts min.). @ -[I interpreted as above] X-rays interpreted by me (1pt min.). @ -[I interpreted as above CT interpreted by me (1pt min.). @ -[I interpreted as above U/S interpreted by me (1pt. min.). @ -[None done] What testing was considered but not performed or refused? (CT, X-rays, U/S, labs)? Why? @ -[None] What meds were considered but not given or refused? Why? @ -[None] Did you discuss the management of the patient with other professionals (professionals i.e. , PA, OPERATIONS MANAGER ASSISTANT, lab, RT, psych nurse, social media marketing analyst, roll edge stitcher hand, teacher, financial aids officer, window caser)? Give summary @ -[No] Was smoking cessation discussed for >3mins.? @ -[No] Was critical care preformed (if so, how long)? @ -[No] Were there social determinants of health that impacted care today? How? (Homelessness, low income, unemployed, alcoholism, drug addiction, transportation, low edu. Level, literacy, decrease access to med. care, usp, rehab)? @ -[No] Was there de-escalation of care discussed even if they declined (Discuss DNR or withdrawal of care, Hospice)? DNR status @ -[No] What co-morbidities impacted this encounter? (DM, HTN, Smoking, COPD, CAD, Cancer, CVA, ARF, Chemo, Hep., AIDS, mental health diagnosis, sleep apnea, morbid obesity)? @ -[None] Was patient admitted / discharged? Hospital course, mention meds given and route, prescriptions, significant lab abnormalities, going to OR and other pertinent info. @ -[See above Undiagnosed new problem with uncertain prognosis? @ -[No] Drug Therapy requiring intensive monitoring for toxicity (Heparin, Nitro, Insulin, Cardizem)? @ -[No] Were any procedures done? @ -[No] Diagnosis/symptom? @ -[Acute influenza A infection NSTEMI Acute delirium, resolved Acute, or Chronic, or Acute on Chronic? @ -[Acute Uncomplicated (without systemic symptoms) or Complicated (systemic symptoms)? @ -[Complicated by delirium Side effects of treatment? @ -[No] Exacerbation, Progression, or Severe Exacerbation? @ -[No] Poses a threat to life or bodily function? How? (Chest pain, [place], ND, pneumonia, PE, COPD, DKA, ARF, appy, cholecystitis, CVA, Diverticulitis, Homicidal, Suicidal, threat to staff... and all critical care pts) @ -[Yes there is risk of myocardial infarction/ or of worsening influenza (Marvin Hearn) - Lab Data Lab Results 06/15/23 06/15/23 06/15/23 Range/Units 00:23 00:24 02:29 WBC 7.3 (3.8-10.6) k/uL RBC 5.74 (4.30-5.90) m/uL Hgb 17.8 H (13.0-17.5) gm/dL Hct 50.5 (39.0-53.0) % MCV 88.0 (80.0-100.0) fL MCH 31.1 (25.0-35.0) pg MCHC 35.3 (31.0-37.0) g/dL RDW 12.9 (11.5-15.5) % Plt Count 205 (150-450) k/uL MPV 8.1 Neutrophils % 76 % Lymphocytes % 9 % Monocytes % 10 % Eosinophils % 2 % Basophils % 1 % Neutrophils # 5.5 (1.3-7.7) k/uL Lymphocytes # 0.6 L (1.0-4.8) k/uL Monocytes # 0.8 (0-1.0) k/uL Eosinophils # 0.1 (0-0.7) k/uL Basophils # 0.0 (0-0.2) k/uL PT (10.0-12.5) sec INR (<1.2) APTT (22.0-30.0) sec Sodium (137-145) mmol/L Potassium (3.5-5.1) mmol/L Chloride (98-107) mmol/L Carbon Dioxide (22-30) mmol/L Anion Gap mmol/L BUN (9-20) mg/dL Creatinine (0.66-1.25) mg/dL Est GFR (CKD-EPI)AfAm (>60 ml/min/1.73 sqM) Est GFR (CKD-EPI)NonAf (>60 ml/min/1.73 sqM) Glucose (74-99) mg/dL POC Glucose (mg/dL) 162 H (70-110) mg/dL POC Glu Editor Index ID [place] Calcium (8.4-10.2) mg/dL Magnesium (1.6-2.3) mg/dL Total Bilirubin (0.2-1.3) mg/dL AST (17-59) U/L ALT (4-49) U/L Alkaline Phosphatase (38-126) U/L Troponin I (0.000-0.034) ng/mL NT-Pro-B Natriuret Pep pg/mL Total Protein (6.3-8.2) g/dL Albumin (3.5-5.0) g/dL Influenza Type A (PCR) Detected A (Not Detectd) Influenza Type B (PCR) Not Detected (Not Detectd) RSV (PCR) Not Detected (Not Detectd) SARS-CoV-2 (PCR) Not Detected (Not Detectd) 06/15/23 06/15/23 06/15/23 Range/Units 02:29 02:29 02:29 WBC (3.8-10.6) k/uL RBC (4.30-5.90) m/uL Hgb (13.0-17.5) gm/dL Hct (39.0-53.0) % MCV (80.0-100.0) fL MCH (25.0-35.0) pg MCHC (31.0-37.0) g/dL RDW (11.5-15.5) % Plt Count (150-450) k/uL MPV Neutrophils % % Lymphocytes % % Monocytes % % Eosinophils % % Basophils % % Neutrophils # (1.3-7.7) k/uL Lymphocytes # (1.0-4.8) k/uL Monocytes # (0-1.0) k/uL Eosinophils # (0-0.7) k/uL Basophils # (0-0.2) k/uL PT 10.5 (10.0-12.5) sec INR 0.9 (<1.2) APTT 27.4 (22.0-30.0) sec Sodium 139 (137-145) mmol/L Potassium 4.4 (3.5-5.1) mmol/L Chloride 105 (98-107) mmol/L Carbon Dioxide 27 (22-30) mmol/L Anion Gap 7 mmol/L BUN 19 (9-20) mg/dL Creatinine 1.76 H (0.66-1.25) mg/dL Est GFR (CKD-EPI)AfAm 44 (>60 ml/min/1.73 sqM) Est GFR (CKD-EPI)NonAf 38 (>60 ml/min/1.73 sqM) Glucose 144 H (74-99) mg/dL POC Glucose (mg/dL) (70-110) mg/dL POC Glu Editor Index ID Calcium 9.3 (8.4-10.2) mg/dL Magnesium 1.5 L (1.6-2.3) mg/dL Total Bilirubin 0.6 (0.2-1.3) mg/dL AST 41 (17-59) U/L ALT 49 (4-49) U/L Alkaline Phosphatase 82 (38-126) U/L Troponin I 0.054 H* (0.000-0.034) ng/mL NT-Pro-B Natriuret Pep pg/mL Total Protein 7.3 (6.3-8.2) g/dL Albumin 4.4 (3.5-5.0) g/dL Influenza Type A (PCR) (Not Detectd) Influenza Type B (PCR) (Not Detectd) RSV (PCR) (Not Detectd) SARS-CoV-2 (PCR) (Not Detectd) 06/15/23 06/15/23 Range/Units 04:13 04:13 WBC (3.8-10.6) k/uL RBC (4.30-5.90) m/uL Hgb (13.0-17.5) gm/dL Hct (39.0-53.0) % MCV (80.0-100.0) fL MCH (25.0-35.0) pg MCHC (31.0-37.0) g/dL RDW (11.5-15.5) % Plt Count (150-450) k/uL MPV Neutrophils % % Lymphocytes % % Monocytes % % Eosinophils % % Basophils % % Neutrophils # (1.3-7.7) k/uL Lymphocytes # (1.0-4.8) k/uL Monocytes # (0-1.0) k/uL Eosinophils # (0-0.7) k/uL Basophils # (0-0.2) k/uL PT (10.0-12.5) sec INR (<1.2) APTT (22.0-30.0) sec Sodium (137-145) mmol/L Potassium (3.5-5.1) mmol/L Chloride (98-107) mmol/L Carbon Dioxide (22-30) mmol/L Anion Gap mmol/L BUN (9-20) mg/dL Creatinine (0.66-1.25) mg/dL Est GFR (CKD-EPI)AfAm (>60 ml/min/1.73 sqM) Est GFR (CKD-EPI)NonAf (>60 ml/min/1.73 sqM) Glucose (74-99) mg/dL POC Glucose (mg/dL) (70-110) mg/dL POC Glu Editor Index ID Calcium (8.4-10.2) mg/dL Magnesium (1.6-2.3) mg/dL Total Bilirubin (0.2-1.3) mg/dL AST (17-59) U/L ALT (4-49) U/L Alkaline Phosphatase (38-126) U/L Troponin I 0.138 H* (0.000-0.034) ng/mL NT-Pro-B Natriuret Pep 533 pg/mL Total Protein (6.3-8.2) g/dL Albumin (3.5-5.0) g/dL Influenza Type A (PCR) (Not Detectd) Influenza Type B (PCR) (Not Detectd) RSV (PCR) (Not Detectd) SARS-CoV-2 (PCR) (Not Detectd) Disposition <Alfred Prasad - Last Filed: 06/15/23 01:51> Is patient prescribed a controlled substance at d/c from ED?: No <Marvin Hearn - Last Filed: 06/21/23 01:46> Clinical Impression: Influenza A, Delirium, Elevated troponin I level Disposition: LEFT AGAINST MEDICAL ADVICE Condition: Undetermined Referrals: Dwayne Chaparro MD [Primary Care Provider] - 1-2 days
[2023-06-15 02:50] LABS: ALT 49 U/L (4-49); AST 41 U/L (17-59); African American GFR (CKD) 44 (>60 ml/min/1.73 sqM); Albumin 4.4 g/dL (3.5-5.0); Alkaline Phosphatase 82 U/L (38-126); Anion Gap 7 mmol/L; Blood Urea Nitrogen 19 mg/dL (9-20); Calcium 9.3 mg/dL (8.4-10.2); Carbon Dioxide 27 mmol/L (22-30); Chloride 105 mmol/L (98-107); Glucose 144 mg/dL (74-99); Magnesium 1.5 mg/dL (1.6-2.3); Non-African American GFR(CKD) 38 (>60 ml/min/1.73 sqM); Potassium 4.4 mmol/L (3.5-5.1); Sodium 139 mmol/L (137-145); Total Bilirubin 0.6 mg/dL (0.2-1.3); Total Protein 7.3 g/dL (6.3-8.2)
[2023-06-15 03:08] LABS: INR 0.9 (<1.2); Partial Thromboplastin Time 27.4 sec (22.0-30.0); Prothrombin Time 10.5 sec (10.0-12.5)
[2023-06-15 03:27] LABS: Basophils % (A) 1 %; Eosinophils # (A) 0.1 k/uL (0-0.7); Eosinophils % (A) 2 %; HCT 50.5 % (39.0-53.0); HGB 17.8 gm/dL (13.0-17.5); Lymphocytes # (A) 0.6 k/uL (1.0-4.8); Lymphocytes % (A) 9 %; MCH 31.1 pg (25.0-35.0); MCHC 35.3 g/dL (31.0-37.0); Mean Platelet Volume 8.1; Monocytes # (A) 0.8 k/uL (0-1.0); Monocytes % (A) 10 %; Neutrophils # (A) 5.5 k/uL (1.3-7.7); Neutrophils % (A) 76 %; Platelet Count 205 k/uL (150-450); RBC 5.74 m/uL (4.30-5.90); RDW 12.9 % (11.5-15.5); WBC 7.3 k/uL (3.8-10.6)
[2023-06-15] MEDS: ASPIRIN 81 MG PO STA (04:08)
[2023-06-15] MEDS: MAGNESIUM SULFATE-D5W PMX 1 GM in DEXTROSE/WATER 1 100ML.BAG IVPB ONE (04:09)
[2023-06-15] MEDS: SODIUM CHLORIDE 0.9% 1,000 ML IV STA (04:12)
[2023-06-15] MEDS: NITROGLYCERIN SL TABS 0.4 MG TAB SUBLINGUAL STA (04:12)
--- NOTE | 2023-06-15 04:29 | CT ---
EXAM: CT Head Without Intravenous Contrast CLINICAL HISTORY: ITS.REASON CT Reason: Lightheadedness, Episode of AMS TECHNIQUE: Axial computed tomography images of the head/brain without intravenous contrast. CTDI is 49.2 mGy and DLP is 1153.4 mGy-cm. This CT exam was performed using one or more of the following dose reduction techniques: automated exposure control, adjustment of the mA and/or kV according to patient size, and/or use of iterative reconstruction technique. COMPARISON: No relevant prior studies available. FINDINGS: Brain: No hemorrhage or mass effect. Ventricles: No hydrocephalus. Bones/joints: Unremarkable. Soft tissues: Unremarkable. Sinuses: No air fluid level. Mastoid air cells: Clear. IMPRESSION: No acute hemorrhage, hydrocephalus, or mass effect.
--- NOTE | 2023-06-15 04:47 | XR ---
EXAM: XR Chest, 2 Views CLINICAL HISTORY: ITS.REASON XR Reason: Chest Pain TECHNIQUE: Frontal and lateral views of the chest. COMPARISON: No relevant prior studies available. IMPRESSION: Cardiomegaly. Slightly prominent interstitial markings in the lower lobes.
[2023-06-15 06:30] VITALS: PULSE 95
[2023-06-15 07:01] VITALS: BP 116/78; RESP 18; TEMP 98.6
== END 2023-06-15 06:53 | disposition left against medical advice (07) ==
LOC: EC 00:12
DX: J10.1 Influenza due to other identified influenza virus with other respiratory manifestations (principal); R41.0 Disorientation, unspecified; R79.89 Other specified abnormal findings of blood chemistry; I45.9 Conduction disorder, unspecified; I11.9 Hypertensive heart disease without heart failure; N18.30 Chronic kidney disease, stage 3 unspecified; E11.9 Type 2 diabetes mellitus without complications; F41.9 Anxiety disorder, unspecified; F32.A Depression, unspecified; Z79.899 Other long term (current) drug therapy; Z91.018 Allergy to other foods; Z20.822 Contact with and (suspected) exposure to COVID-19; Z53.29 Procedure and treatment not carried out because of patient's decision for other reasons
CPT/HCPCS: 36415; 93005; 83880; 80053; 83735; 84484; 85025; 85610; 85730; 87636; 71046; 70450; 99285; 96365; 96361 ×2; J3475

== ENCOUNTER → 2023-06-28 | Outpatient (CLI) | payer MEDICARE ==
[2023-06-29 03:33] LABS: Blood Urea Nitrogen 18.4 mg/dL (9.0-27.0)
== END | disposition home or self-care (01) ==
LOC: LABWHC1 13:05
PROVIDERS: ATTEND Thoracic Surgery (Cardiothoracic Vascular Surgery)
DX: R54 Age-related physical debility (principal)
CPT/HCPCS: 36415; 82565; 84520